=== PATIENT | male | born 1965 | race Caucasian/White ===

== ENCOUNTER 2023-09-28 06:31 | Outpatient (OUT) | payer OTHER, SELFPAY ==
[2023-09-28 06:52] LABS: Basophils Absolute Auto 0.1 10^3/uL (0.0-0.1); Eosinophils Absolute Auto 0.1 10^3/uL (0.0-0.7); Eosinophils Percent Auto 1.2 % (0.9-7.0); Hemoglobin 17.3 g/dL (14.0-18.0); Immature Granulocytes Abs Auto 0.01 10^3/uL (0.00-0.03); Immature Granulocytes Pct Auto 0.2 % (0.0-0.5); Lymphocytes Absolute Auto 1.9 10^3/uL (1.2-3.8); Lymphocytes Percent Auto 36.3 % (20.5-60.0); Mean Corpuscular HGB Conc 34.6 g/dL (29.9-35.2); Mean Corpuscular Hemoglobin 31.1 pg (25.9-34.0); Mean Corpuscular Volume 89.9 fL (80.0-94.0); Mean Platelet Volume 11.1 fL (9.5-13.5); Monocytes Absolute Auto 0.6 10^3/uL (0.3-0.8); Neutrophils Absolute Auto 2.5 10^3/uL (1.4-6.5); Neutrophils Percent Auto 49.3 % (43.0-75.0); Platelet Count 168 10^3/uL (150-450); Red Blood Count 5.56 10^6/uL (4.70-6.10); Red Cell Distribution Width 11.9 % (11.0-15.0); White Blood Count 5.2 10^3/uL (4.0-11.0)
[2023-09-28 07:09] LABS: Estimated Average Glucose 103 mg/dL; Glycohemoglobin A1C 5.2 % (4.5-6.2)
[2023-09-28 07:34] LABS: Alanine Aminotransferase 27 U/L (16-63); Albumin Globulin Ratio 1.1; Albumin Level 3.7 g/dL (3.4-5.0); Alkaline Phosphatase 69 U/L (46-116); Anion Gap 12.3; Aspartate Amino Transferase 13 U/L (15-37); BUN Creatinine Ratio 14.2; Calcium 8.5 mg/dL (8.5-10.1); Carbon Dioxide 27.8 mmol/L (21.0-32.0); Chloride 103 mmol/L (98-107); Cholesterol 194 mg/dL (<=200); Estimated GFR (African America >60 (>=60); Estimated GFR (Non-African Ame >60 (>=60); Free T3 3.06 pg/mL (2.18-3.98); Globulin 3.3 g/dL; Glucose 99 mg/dL (74-106); HDL Cholesterol 49 mg/dL (40-60); LDL Cholesterol Calculated 120.6 mg/dL; Potassium 4.1 mmol/L (3.5-5.1); Sodium 139 mmol/L (136-145); Thyroid Stimulating Hormone 3.578 uIU/mL (0.358-3.740); Triglycerides 122 mg/dL (<=150); VLDL CHOLESTEROL 24.4 mg/dL
[2023-09-29 08:09] LABS: Testosterone 606 ng/dL (264-916)
== END 2023-09-28 06:32 | disposition home or self-care (01) ==
LOC: LAB 06:35
PROVIDERS: PCP Family Medicine; Visit Provider Family Medicine
DX: Z00.00 Encounter for general adult medical examination without abnormal findings (principal); E78.5 Hyperlipidemia, unspecified; R73.09 Other abnormal glucose; Z12.5 Encounter for screening for malignant neoplasm of prostate
CPT/HCPCS: 36415; 80053; 80061; 83036; 83525; 84403; 84436; 84443; 84481; 85025; G0103

== ENCOUNTER 2023-10-05 07:57 | Outpatient (OUT) | payer OTHER, SELFPAY ==
--- NOTE | 2023-10-05 07:59 | US_ITS ---
The [address] [address] Patient Name: JOSE OSMAN MRN: [id number] date: 1965 Sex: M Assigned Patient Location: [place] Current Patient Location: [place] Accession/Order Number: [id number] Exam Date: 10/05/2023 08:00 Report Date: 10/05/2023 18:21 At the request of: KENISHA DUNN Procedure: US right upper quadrant Limited abdominal ultrasound 10/05/2023 8:00 AM EST. Indication: Right upper quadrant abdominal pain. Comparison: Abnormal LFTs . Findings: Liver is slightly coarsened in echotexture without evidence of focal lesion. Extrahepatic biliary ductal dilatation with the visualized portion of the common duct measuring up to 9.4 mm. No gallstones, gallbladder wall thickening, pericholecystic fluid or sonographic Maldonado's sign. Limited visualization of the tail of the pancreas, with the visualized portion of the pancreas unremarkable. Right kidney measures 10.9 x 5.5 x 6.1 cm. No hydronephrosis. No free fluid in the right upper quadrant. US/US right upper quadrant Impression: 1. Slightly coarsened echogenicity in the liver, compatible with underlying hepatocellular disease, which most commonly relates to mild fatty infiltration of the liver 2. Common bile duct dilatation without an obstructing cause identified sonographically. Otherwise unremarkable right upper quadrant ultrasound, as detailed above. Electronically authenticated by: KE JOYCE Date: 10/05/2023 18:21
--- OUTSIDE RECORDS SUMMARY | 2023-10-05 07:59 | XMS_ITS | CCD ---
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 Name Role Phone SHAUN ., DR DE Primary Care Unavailable TERESSAY ., DR DE Consulting Unavailable HOY ., DR DE Attending Unavailable HOY ., DR DE Admitting Unavailable ZIEBER, DR JEANINE Cuenca Consulting Unavailable HOY ., DR DE Primary Care Unavailable HOY ., DR DE Consulting Unavailable HOY ., DR DE Attending Unavailable HOY ., DR DE Admitting Unavailable NILLSony Attending Unavailable Jacky Dunn Referring Unavailable Problems Active Problems Problem Classification Problem Date Documented Date Episodic/Chronic Spondylosis; intervertebral disc disorders; other back problems (1 source) Other intervertebral disc degeneration, lumbosacral region; Translations: [OTH IV DISC DEGEN LUMBOSACRAL RGN] Onset: 11-30-2022 Chronic Spondylosis; intervertebral disc disorders; other back problems (4 sources) Radiculopathy, lumbar region; Translations: [RADICULOPATHY LUMBAR REGION] Onset: 11-28-2022 Episodic Past or Other Problems Problem Classification Problem Date Documented Da te Episodic/Chronic Other screening for suspected conditions (not mental disorders or infectious disease) (1 source) Encounter for screening for malignant neoplasm of prostate; Translations: [ENC SCREEN MALIG NEOPLASM PROSTATE] Onset: 07-03-2022 Episodic Results Test Name Value Interpretation Reference Range Facil ity Physician Referralon 024 Physician Referral [id number]# 1.00TIFF [facility] Physician Referralon 024 Physician Referral [id number] #1.00TIFF [facility] XR LSPINE MIN 4 VIEWSon 11-01 XR LSPINE MIN 4 VIEWS EXAMINATION: XR LSPINE MIN 4 VIEWS HISTORY: Lumbar radiculopathy ; acute right leg pain; no known injury COMPARISON: No relevant comparison available. FINDINGS: BONES: Moderate degenerative facet arthropathy L5-S1 resulting in bone encroachment on the neural foramen. DISC SPACES: Marked disc space narrowing L5-S1. PARASPINOUS: Negative. No paraspinous abnormality is seen. OTHER: Negative. IMPRESSION: 1. L5-S1 moderate-marked degenerative disc disease and moderate degenerative facet arthropathy likely contributing to patient's symptoms. Electronically authenticated by: JEANINE BARTH Date: 2022-11-28 10:09 Normal [facility] INSULINon 07-03-2022 Insulin 11.7 uIU/mL Normal 2.6-24.9 [facility] Comment on above: Performed By: #### I NSULIN #### [facility] [address] [place] [address] Dr. Navarro Biggs TESTOSTERONE, TOTALon 2021 Testosterone [Mass/Vol] 586 ng/dL Normal 264-916 [facility] Comment on above: Result Comment: Adul t male reference interval is based on a population of healthy nonobese males (BMI <30) between 19 and 39 years old. Monica et.al. JCEM 2017,102;4027-1911. PMID: [id number]. Performed By: #### T ESTTOT #### [facility] [address] [place] [address] Dr. Navarro Biggs CBC AUTO DIFFon 07-02-2022 BASO # 0.1 103/ul Normal 0.0-0.1 [facility] Comment on above: Performed By: #### P SASC #### [facility] [address] [place] [address] Dr. Navarro Biggs Basophils/100 WBC (Bld) 1.0 % Normal 0.2-2.0 [facility] Comment on above: Performed By: #### P SASC #### [facility] [address] [place] [address] Dr. Navarro Biggs EO # 0.1 103/ul Normal 0.0-0.7 [facility] Comment on above: Performed By: #### P SASC #### [facility] [address] [address] [address] Navarro Biggs Eosinophils/100 WBC (Bld) 1.3 % Normal 0.9-7.0 [facility] Comment on above: Performed By: #### P SASC #### [facility] [address] [place] [address] Dr. Navarro Biggs Erythrocyte distribution width (RBC) [Ratio] 11.7 % Normal 11.0-15.0 [facility] Comment on above: Performed By: #### P SASC #### [facility] [address] [place] [address] Dr. Navarro Biggs Hematocrit (Bld) [Volume fraction] 48.3 % Normal 42.0-54.0 [facility] Comment on above: Performed By: #### P SASC #### [facility] [address] [place] [address] Dr. Navarro Biggs Hemoglobin (Bld) [Mass/Vol] 16.7 g/dL Normal 14.0-18.0 [facility] Comment on above: Performed By: #### P SASC #### [facility] [address] [place] [address] Dr. Navarro Biggs IG # 0.01 10e3/ul Normal 0.00-0.03 [facility] Comment on above: Performed By: #### P SASC #### [facility] [address] [place] [address] Dr. Navarro Biggs IG % 0.2 % Normal 0.0-0.5 [facility] Comment on above: Performed By: #### P SASC #### [facility] [address] [place] [address] Dr. Navarro Biggs LYMPH # 1.9 103/ul Normal 1.2-3.8 [facility] Comment on above: Performed By: #### P SASC #### [facility] [address] [place] [address] Dr. Navarro Biggs Lymphocytes/100 WBC (Bld) 36.6 % Normal 20.5-60.0 [facility] Comment on above: Performed By: #### P SASC #### [facility] [address] [address] [address] Navarro Biggs MANUAL DIFF REQ NO Normal [facility] Comment on above: Performed By: #### P SASC #### [facility] [address] [address] [address] Navarro Biggs MCH (RBC) [Entitic mass] 31.4 pg Normal 25.9-34.0 [facility] Comment on above: Performed By: #### P SASC #### [facility] [address] [address] [address] Navarro Biggs MCHC (RBC) [Mass/Vol] 34.6 g/dL Normal 29.9-35.2 [facility] Comment on above: Performed By: #### P SASC #### [facility] [address] [place] [address] Dr. Navarro Biggs MCV (RBC) [Entitic vol] 90.8 fL Normal 80.0-94.0 [facility] Comment on above: Performed By: #### P SASC #### [facility] [address] [address] [address] Navarro Biggs MONO # 0.6 103/ul Normal 0.3-0.8 [facility] Comment on above: Performed By: #### P SASC #### [facility] [address] [address] [address] Navarro Biggs Monocytes/100 WBC (Bld) 11.3 % Normal 1.7-12.0 [facility] Comment on above: Performed By: #### P SASC #### [facility] [address] [address] [address] Navarro Biggs NEUT # 2.6 103/ul Normal 1.4-6.5 [facility] Comment on above: Performed By: #### P SASC #### [facility] [address] [place] [address] Dr. Navarro Biggs Neutrophils/100 WBC (Bld) 49.6 % Normal 43.0-75.0 [facility] Comment on above: Performed By: #### P SASC #### [facility] [address] [address] [address] Navarro Biggs Platelet mean volume (Bld) [Entitic vol] 11.5 fL Normal 9.5-13.5 [facility] Comment on above: Performed By: #### P SASC #### [facility] [address] [address] [address] Navarro Biggs PLT 150 103/ul Normal 150-450 [facility] Comment on above: Performed By: #### P SASC #### [facility] [address] [address] [address] Navarro Biggs RBC 5.32 106/ul Normal 4.70-6.10 [facility] Comment on above: Performed By: #### P SASC #### [facility] [address] [place] [address] Dr. Navarro Biggs WBC 5.2 103/ul Normal 4.0-11.0 [facility] Comment on above: Performed By: #### P SASC #### [facility] [address] [address] [address] Navarro Biggs CULTURE URINEon 07-02-2022 CULTURE URINE Culture Observations: NO GROWTH. Normal [facility] Comment on above: Performed By: #### U RCX #### [facility] [address] [place] [address] Dr. Navarro Biggs FREE THYROXINE INDEX T7on FTI 1.69 Normal 1.30-4.50 [facility] Comment on above: Performed By: #### P SASC #### [facility] [address] [place] [address] Dr. Navarro Biggs T3U 36.0 % Normal 33.0-40.0 [facility] Comment on above: Performed By: #### P SASC #### [facility] [address] [address] [address] Navarro Biggs T4 [Mass/Vol] 4.70 ug/dL Normal 4.50-12.10 [facility] Comment on above: Performed By: #### P SASC #### [facility] [address] [address] [address] Navarro Biggs GLYCOHEMOGLOBIN A1Con 2021 ADA RECOMMENDATION SEE BELOW Normal [facility] Comment on above: Result Comment: ADA RECOMMENDED LIMIT 4.0 - 6.0 ADA THERAPEUTIC TARGET < 7.0 ACTION SUGGESTED > 7.0 Performed By: #### A 1C #### [facility] [address] [address] [address] Navarro Biggs Glucose [Mass/Vol] 111 mg/dL Normal [facility] Comment on above: Performed By: #### A 1C #### [facility] [address] [place] [address] Dr. Navarro Biggs HbA1c (Bld) [Mass fraction] 5.5 % Normal 4.5-6.2 [facility] Comment on above: Performed By: #### A 1C #### [facility] [address] [place] [address] Dr. Navarro Biggs LIPID PROFILEon 07-02-2022 CHOL-HDL RATIO NORM SEE BELOW Normal [facility] Comment on above: Result Comment: 3.3 - 4.4 LOW RISK 4.4 - 7.1 AVERAGE RISK 7.1 - 11.0 MODERATE RISK >11.0 HIGH RISK Performed By: #### T SH, T7, URIC, CMP, LIPID #### [facility] [address] [place] [address] Dr. Navarro Biggs Cholesterol [Mass/Vol] 211 mg/dL Critically high <=200 [facility] Comment on above: Performed By: #### T SH, T7, URIC, CMP, LIPID #### [facility] [address] [address] [address] Navarro Biggs Cholesterol in HDL [Mass/Vol] 56 mg/dL Normal 40-60 [facility] Comment on above: Performed By: #### T SH, T7, URIC, CMP, LIPID #### [facility] [address] [address] [address] Navarro Biggs Cholesterol in LDL [Mass/Vol] 139.0 mg/dL Normal [facility] Comment on above: Performed By: #### T SH, T7, URIC, CMP, LIPID #### [facility] [address] [address] [address] Navarro Biggs Cholesterol.total/Cho lesterol in HDL [Mass ratio] 3.8 {ratio} Normal [facility] Comment on above: Performed By: #### T SH, T7, URIC, CMP, LIPID #### [facility] [address] [address] [address] Navarro Biggs HDL NORMAL > or = 60 mg/dl - LOW CARDIOVASCULAR RISK <40 mg/dl - HIGH CARDIOVASCULAR RISK Normal [facility] Comment on above: Performed By: #### T SH, T7, URIC, CMP, LIPID #### [facility] [address] [address] [address] Navarro Biggs LDL CALC NORMAL SEE BELOW Normal [facility] Comment on above: Result Comment: <100 mg/dl OPTIMAL 100 - 129 mg/dl NEAR OR ABOVE OPTIMAL 130 - 159 mg/dl BORDERLINE HIGH 160 - 189 mg/dl HIGH >190 mg/dl VERY HIGH Performed By: #### T SH, T7, URIC, CMP, LIPID #### [facility] [address] [address] [address] Navarro Biggs Triglyceride [Mass/Vol] 80 mg/dL Normal <=150 [facility] Comment on above: Performed By: #### T SH, T7, URIC, CMP, LIPID #### [facility] [address] [address] [address] Navarro Biggs VLDL CALC 16.0 mg/dL Normal [facility] Comment on above: Performed By: #### T SH, T7, URIC, CMP, LIPID #### [facility] [address] [address] [address] Navarro Biggs PROF 14(COMP METB)on 022 Albumin [Mass/Vol] 3.9 g/dL Normal 3.4-5.0 [facility] Comment on above: Performed By: #### T SH, T7, URIC, CMP, LIPID #### [facility] [address] [address] [address] Navarro Biggs Albumin/Globulin [Mass ratio] 1.3 {ratio} Normal [facility] Comment on above: Performed By: #### T SH, T7, URIC, CMP, LIPID #### [facility] [address] [place] [address] Dr. Navarro Biggs ALP [Catalytic activity/Vol] 65 U/L Normal 46-116 [facility] Comment on above: Performed By: #### T SH, T7, URIC, CMP, LIPID #### [facility] [address] [place] [address] Dr. Navarro Biggs ALT [Catalytic activity/Vol] 31 U/L Normal 16-63 [facility] Comment on above: Performed By: #### T SH, T7, URIC, CMP, LIPID #### [facility] [address] [place] [address] Dr. Navraro Biggs Anion gap [Moles/Vol] 7.8 mmol/L Normal [facility] Comment on above: Performed By: #### T SH, T7, URIC, CMP, LIPID #### [facility] [address] [place] [address] Dr. Navarro Biggs AST [Catalytic activity/Vol] 11 U/L Critically low 15-37 [facility] Comment on above: Performed By: #### T SH, T7, URIC, CMP, LIPID #### [facility] [address] [place] [address] Dr. Navarro Biggs Bilirubin [Mass/Vol] 1.3 mg/dL Critically high 0.2-1.0 [facility] Comment on above: Performed By: #### T SH, T7, URIC, CMP, LIPID #### [facility] [address] [place] [address] Dr. Navarro Biggs Calcium [Mass/Vol] 8.9 mg/dL Normal 8.5-10.1 [facility] Comment on above: Performed By: #### T SH, T7, URIC, CMP, LIPID #### [facility] [address] [place] [address] Dr. Navarro Biggs Chloride [Moles/Vol] 102 mmol/L Normal 98-107 [facility] Comment on above: Performed By: #### T SH, T7, URIC, CMP, LIPID #### [facility] [address] [place] [address] Dr. Navarro Biggs CO2 [Moles/Vol] 30.7 mmol/L Normal 21.0-32.0 [facility] Comment on above: Performed By: #### T SH, T7, URIC, CMP, LIPID #### [facility] [address] [place] [address] Dr. Navarro Biggs Creatinine [Mass/Vol] 0.99 mg/dL Normal 0.70-1.30 [facility] Comment on above: Performed By: #### T SH, T7, URIC, CMP, LIPID #### [facility] [address] [place] [address] Dr. Navarro Biggs EGFR-AF PALAUAN >60 Normal >=60 [facility] Comment on above: Performed By: #### T SH, T7, URIC, CMP, LIPID #### [facility] [address] [place] [address] Dr. Navarro Biggs EGFR-NON AF PALAUAN >60 Normal >=60 [facility] Comment on above: Performed By: #### T SH, T7, URIC, CMP, LIPID #### [facility] [address] [place] [address] Dr. Navarro Biggs Globulin (S) [Mass/Vol] 3.1 g/dL Normal [facility] Comment on above: Performed By: #### T SH, T7, URIC, CMP, LIPID #### [facility] [address] [place] [address] Dr. Navarro Biggs Glucose [Mass/Vol] 98 mg/dL Normal 74-106 [facility] Comment on above: Performed By: #### T SH, T7, URIC, CMP, LIPID #### [facility] [address] [place] [address] Dr. Navarro Biggs Potassium [Moles/Vol] 4.5 mmol/L Normal 3.5-5.1 [facility] Comment on above: Performed By: #### T SH, T7, URIC, CMP, LIPID #### [facility] [address] [place] [address] Dr. Navarro Biggs Protein [Mass/Vol] 7.0 g/dL Normal 6.4-8.2 [facility] Comment on above: Performed By: #### T SH, T7, URIC, CMP, LIPID #### [facility] [address] [place] [address] Dr. Navarro Biggs Sodium [Moles/Vol] 136 mmol/L Normal 136-145 [facility] Comment on above: Performed By: #### T SH, T7, URIC, CMP, LIPID #### [facility] [address] [place] [address] Dr. Navarro Biggs Urea nitrogen [Mass/Vol] 17.0 mg/dL Normal 7.0-18.0 [facility] Comment on above: Performed By: #### T SH, T7, URIC, CMP, LIPID #### [facility] [address] [place] [address] Dr. Navarro Biggs Urea nitrogen/Creatinine [Mass ratio] 17.2 mg/mg Normal [facility] Comment on above: Performed By: #### T SH, T7, URIC, CMP, LIPID #### [facility] [address] [place] [address] Dr. Navarro Biggs TSHon 07-02-2022 TSH 3.276 uIU/mL Normal 0.358-3.740 [facility] Comment on above: Performed By: #### P SASC #### [facility] [address] [place] [address] Dr. Navarro Biggs UA RANDOM W/MICROSCOPICon BACTERIA NONE SEEN Normal NONE SEEN [facility] Comment on above: Performed By: #### U AMIC #### [facility] [address] [place] [address] Dr. Navarro Biggs Bilirubin Ql (U) Negative Normal NEGATIVE [facility] Comment on above: Performed By: #### U AMIC #### [facility] [address] [place] [address] Dr. Navarro Biggs CAST NONE SEEN Normal NONE SEEN [facility] Comment on above: Performed By: #### U AMIC #### [facility] [address] [address] [address] Navarro Biggs Clarity (U) CLEAR Normal CLEAR [facility] Comment on above: Performed By: #### U AMIC #### [facility] [address] [address] [address] Navarro Biggs Color (U) LT. YELLOW Normal YELLOW [facility] Comment on above: Performed By: #### U AMIC #### [facility] [address] [address] [address] Navarro Biggs Crystals LM Nom (Urine sed) NONE SEEN Normal NONE SEEN [facility] Comment on above: Performed By: #### U AMIC #### [facility] [address] [place] [address] Dr. Navarro Biggs Epithelial cells LM Ql (Urine sed) NONE SEEN Normal NONE SEEN /RARE [facility] Comment on above: Performed By: #### U AMIC #### [facility] [address] [place] [address] Dr. Navarro Biggs Glucose Ql (U) Negative Normal NEGATIVE [facility] Comment on above: Performed By: #### U AMIC #### [facility] [address] [place] [address] Dr. Navarro Biggs Hemoglobin Ql (U) Negative Normal NEGATIVE [facility] Comment on above: Performed By: #### U AMIC #### [facility] [address] [place] [address] Dr. Navarro Biggs Ketones Ql (U) Negative Normal NEGATIVE [facility] Comment on above: Performed By: #### U AMIC #### [facility] [address] [place] [address] Dr. Navarro Biggs LEUKOCYTES Negative Normal NEGATIVE [facility] Comment on above: Performed By: #### U AMIC #### [facility] [address] [place] [address] Dr. Navarro Biggs MUCOUS NONE SEEN Normal NONE SEEN [facility] Comment on above: Performed By: #### U AMIC #### [facility] [address] [place] [address] Dr. Navarro Biggs Nitrite Ql (U) Negative Normal NEGATIVE [facility] Comment on above: Performed By: #### U AMIC #### [facility] [address] [address] [address] Navarro Biggs pH (U) 7.5 [pH] Normal 5-9 [facility] Comment on above: Performed By: #### U AMIC #### [facility] [address] [address] [address] Navarro Biggs RBC 0-2 Normal 0-2 [facility] Comment on above: Performed By: #### U AMIC #### [facility] [address] [address] [address] Navarro Biggs SPEC GRAVITY 1.020 Normal 1.005-<=1.025 [facility] Comment on above: Performed By: #### U AMIC #### [facility] [address] [address] [address] Navarro Biggs UA PROTEIN Negative Normal NEGATIVE/ TRACE [facility] Comment on above: Performed By: #### U AMIC #### [facility] [address] [address] [address] Navarro Biggs Urobilinogen Qn (U) 0.2 {Jayden'U}/dL Normal 0.2 - 1. 0 [facility] Comment on above: Performed By: #### U AMIC #### [facility] [address] [address] [address] Navarro Biggs WBC 0-2 Abnormal NONE SEEN [facility] Comment on above: Performed By: #### U AMIC #### [facility] [address] [address] [address] Navarro Biggs URIC ACID SERUMon 07-02-2022 Urate [Mass/Vol] 4.8 mg/dL Normal 3.5-7.2 [facility] Comment on above: Performed By: #### T SH, T7, URIC, CMP, LIPID #### [facility] [address] [address] [address] Naavrro Biggs Encounters Encounter Date Encounter Type Care Provider Facility Start: 11-05-2023 ambulatory Sony TANNER Facility :[facility] Start: 09-27-2023 ambulatory Sony TANNER Facility:[facility] [place] Start: 11-28-2022 End: 11-29-[address] JACKY DUNN . Facility:[facility] Start: 07-03-2022 Encounter for genera l adult medical examination without abnormal findings DR JACKY DUNN . [facility] Start: 07-02-2022 End: 07-03-[address] JACKY DUNN . Facility:[facility] Start: 07-02-2022 End: 07-03-2022 Encounter for general adult medical examination without abnormal findings DR JACKY DUNN . Facility:[facility] Procedures Date Procedure Procedure Detail Performing Clinician Start: 07-02-[address] SAPNA DUNN . Comment on above: Performed By: #### P [facility] #### [facility] [address] [place] [address] Dr. Navarro Biggs Payers Date Payer Category Payer Unknown [id number] 2.16.84 [id number] 1965 Unknown [id number] 2.16.84 [id number] 1965 Unknown [id number] [id number] 1959 Unknown [id number] 1959 Unknown [id number] Summary Purpose Family History No Family History Records FoundNo Family History Records Found Advance Directives No Advanced Directives Records FoundNo Advanced Directives Records Found Additional Source Comments (unrecognized sect ion and content) No Status Records FoundNo Status Records Found INFORMATION SOURCE (unrecogn ized section and content) DATE CREATED AUTHOR 12/02/2022 [facility] [place] DATE CREATED AUTHOR AUTHOR'S ORGANIZ ATION 10/02/2023 [facility] FOR RECORDS PERTAINING TO PATIENTS WHO ARE OR HAVE BEEN ENROLLED IN A CHEMICAL DEPENDENCY/SUBSTANCEABUSE PROGRAM, SOME INFORMATION MAY BE OMITTED. This clinical summary was aggregated from multiple sources. Caution should be exercised in using it in the provision of clinical care. This summary normalizes information from multiple sources, and as a consequence, information in this document may materially change the coding, format and clinical context of patient data. In addition, data may be omitted in some cases. CLINICAL DECISIONS SHOULD BE BASED ON THE PRIMARY CLINICAL RECORDS. [facility]. provides no warranty or guarantee of the accuracy or completeness of information in this document.
== END 2023-10-05 07:58 | disposition home or self-care (01) ==
LOC: US 07:57
PROVIDERS: PCP Family Medicine; Visit Provider Family Medicine
DX: R94.5 Abnormal results of liver function studies (principal)
CPT/HCPCS: 76705

== ENCOUNTER 2023-10-23 06:43 | Outpatient (OUT) | payer OTHER, SELFPAY ==
--- NOTE | 2023-10-23 06:20 | NM_ITS ---
Patient Name: JOSE OSMAN MR#: [id number] : 1965 Exam Date: 10/23/2023 Ordering Doctor: DR Jacky Perez . RADIOLOGY REPORT PROCEDURE: NM YAMEL PERF SPECT REST STR COMPARISON: None. INDICATIONS: CHEST PAIN, SHORTNESS OF BREATH TECHNIQUE: Exam Description: Stress/Rest one day protocol gated SPECT Rest Imagin.9 mCi Tc-99m Cardiolite IV on 10/23/2023 Stress Imaging 30.8 mCi Tc-99m Cardiolite IV on 10/23/2023 Exercise Protocol: Catarino Heart Rate (bpm): Rest: 74 Max: 151 PMHR: 92 Blood Pressure: Rest: 126/82 Max: 166/84 Exercise Time: Minutes: 9 Seconds: 58 Stage Reached: Stage: 4 Mets 13.2 Symptoms: Rest and peak stress ECG findings were abnormal and the exercise portion of the study was Non-diagnostic per attending physician Dr. Woods due to EKG changes during recovery. For more details please see separate cardiac stress test report. FINDINGS: QUALITY OF STUDY: Excellent. PERFUSION DEFECT: None. LOCATION: N/A SIZE: N/A. SEVERITY: N/A. TYPE: N/A. WALL MOTION: Normal. LV SIZE: Normal. 80 mL. TID / TCD: None; 0.8 LVEF: Normal. Calculated EF 69%. SUMMARY: Myocardial perfusion imaging study is NORMAL. CONCLUSION: 1. Normal nuclear medicine myocardial perfusion scan. Dictated by: Brody Bearden M.D. on 10/24/2023 at 15:37 Approved by: Brody Bearden M.D. on 10/24/2023 at 15:39
--- OUTSIDE RECORDS SUMMARY | 2023-10-23 06:46 | XMS_ITS | CCD ---
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 Reeler Name Role Phone SHAUN ., DR DE [...] Facil ity Physician Referralon 024 Physician Referral [id number]# 1.00TIFF [facility] Physician Referralon 024 Physician Referral [id number] #1.00TIFF [facility] XR LSPINE MIN 4 VIEWSon 11-01 [...] JEANINE BARTH Date: 2022-11-28 10:09 Normal [facility] INSULINon 07-03-2022 Insulin 11.7 uIU/mL Normal 2.6-24.9 [facility] Comment on above: Performed By: #### I NSULIN #### [facility] [address] [place] [address] Dr. Navarro Biggs TESTOSTERONE, TOTALon 2021 Testosterone [Mass/Vol] 586 ng/dL Normal 264-916 [facility] Comment on above: Result Comment: Adul t male reference interval is based on a population of healthy nonobese males (BMI <30) between 19 and 39 years old. Monica et.al. JCEM 2017,102;8639-0536. PMID: [id number]. Performed By: #### T ESTTOT #### [facility] [address] [place] [address] Dr. Navarro Biggs CBC AUTO DIFFon 07-02-2022 BASO # 0.1 103/ul Normal 0.0-0.1 [facility] Comment on above: Performed By: #### P SASC #### [facility] [address] [place] [address] Dr. Navarro Biggs Basophils/100 WBC (Bld) 1.0 % Normal 0.2-2.0 [facility] Comment on above: Performed By: #### P SASC #### [facility] [address] [place] [address] Dr. Navarro Biggs EO # 0.1 103/ul Normal 0.0-0.7 [facility] Comment on above: Performed By: #### P SASC #### [facility] [address] [address] [address] Navarro Biggs Eosinophils/100 WBC (Bld) 1.3 % Normal 0.9-7.0 [facility] Comment on above: Performed By: #### P SASC #### [facility] [address] [place] [address] Dr. Navarro Biggs Erythrocyte distribution width (RBC) [Ratio] 11.7 % Normal 11.0-15.0 [facility] Comment on above: Performed By: #### P SASC #### [facility] [address] [place] [address] Dr. Navarro Biggs Hematocrit (Bld) [Volume fraction] 48.3 % Normal 42.0-54.0 [facility] Comment on above: Performed By: #### P SASC #### [facility] [address] [place] [address] Dr. Navarro Biggs Hemoglobin (Bld) [Mass/Vol] 16.7 g/dL Normal 14.0-18.0 [facility] Comment on above: Performed By: #### P SASC #### [facility] [address] [place] [address] Dr. Navarro Biggs IG # 0.01 10e3/ul Normal 0.00-0.03 [facility] Comment on above: Performed By: #### P SASC #### [facility] [address] [place] [address] Dr. Navarro Biggs IG % 0.2 % Normal 0.0-0.5 [facility] Comment on above: Performed By: #### P SASC #### [facility] [address] [place] [address] Dr. Navarro Biggs LYMPH # 1.9 103/ul Normal 1.2-3.8 [facility] Comment on above: Performed By: #### P SASC #### [facility] [address] [place] [address] Dr. Navarro Biggs Lymphocytes/100 WBC (Bld) 36.6 % Normal 20.5-60.0 [facility] Comment on above: Performed By: #### P SASC #### [facility] [address] [address] [address] Navarro Biggs MANUAL DIFF REQ NO Normal [facility] Comment on above: Performed By: #### P SASC #### [facility] [address] [address] [address] Navarro Biggs MCH (RBC) [Entitic mass] 31.4 pg Normal 25.9-34.0 [facility] Comment on above: Performed By: #### P SASC #### [facility] [address] [address] [address] Navarro Biggs MCHC (RBC) [Mass/Vol] 34.6 g/dL Normal 29.9-35.2 [facility] Comment on above: Performed By: #### P SASC #### [facility] [address] [place] [address] Dr. Navarro Biggs MCV (RBC) [Entitic vol] 90.8 fL Normal 80.0-94.0 [facility] Comment on above: Performed By: #### P SASC #### [facility] [address] [address] [address] Navarro Biggs MONO # 0.6 103/ul Normal 0.3-0.8 [facility] Comment on above: Performed By: #### P SASC #### [facility] [address] [address] [address] Navarro Biggs Monocytes/100 WBC (Bld) 11.3 % Normal 1.7-12.0 [facility] Comment on above: Performed By: #### P SASC #### [facility] [address] [address] [address] Navarro Biggs NEUT # 2.6 103/ul Normal 1.4-6.5 [facility] Comment on above: Performed By: #### P SASC #### [facility] [address] [place] [address] Dr. Navarro Biggs Neutrophils/100 WBC (Bld) 49.6 % Normal 43.0-75.0 [facility] Comment on above: Performed By: #### P SASC #### [facility] [address] [address] [address] Navarro Biggs Platelet mean volume (Bld) [Entitic vol] 11.5 fL Normal 9.5-13.5 [facility] Comment on above: Performed By: #### P SASC #### [facility] [address] [address] [address] Navarro Biggs PLT 150 103/ul Normal 150-450 [facility] Comment on above: Performed By: #### P SASC #### [facility] [address] [address] [address] Navarro Biggs RBC 5.32 106/ul Normal 4.70-6.10 [facility] Comment on above: Performed By: #### P SASC #### [facility] [address] [place] [address] Dr. Navarro Biggs WBC 5.2 103/ul Normal 4.0-11.0 [facility] Comment on above: Performed By: #### P SASC #### [facility] [address] [address] [address] Navarro Biggs CULTURE URINEon 07-02-2022 CULTURE URINE Culture Observations: NO GROWTH. Normal [facility] Comment on above: Performed By: #### U RCX #### [facility] [address] [place] [address] Dr. Navarro Biggs FREE THYROXINE INDEX T7on FTI 1.69 Normal 1.30-4.50 [facility] Comment on above: Performed By: #### P SASC #### [facility] [address] [place] [address] Dr. Navarro Biggs T3U 36.0 % Normal 33.0-40.0 [facility] Comment on above: Performed By: #### P SASC #### [facility] [address] [address] [address] Navarro Biggs T4 [Mass/Vol] 4.70 ug/dL Normal 4.50-12.10 [facility] Comment on above: Performed By: #### P SASC #### [facility] [address] [address] [address] Navarro Biggs GLYCOHEMOGLOBIN A1Con 2021 ADA RECOMMENDATION SEE BELOW Normal [facility] Comment on above: Result Comment: ADA RECOMMENDED LIMIT 4.0 - 6.0 ADA THERAPEUTIC TARGET < 7.0 ACTION SUGGESTED > 7.0 Performed By: #### A 1C #### [facility] [address] [address] [address] aNvarro Biggs Glucose [Mass/Vol] 111 mg/dL Normal [facility] Comment on above: Performed By: #### A 1C #### [facility] [address] [place] [address] Dr. Navarro Biggs HbA1c (Bld) [Mass fraction] 5.5 % Normal 4.5-6.2 [facility] Comment on above: Performed By: #### A 1C #### [facility] [address] [place] [address] Dr. Navarro Biggs LIPID PROFILEon 07-02-2022 CHOL-HDL RATIO NORM SEE BELOW Normal [facility] Comment on above: Result Comment: 3.3 - 4.4 LOW RISK 4.4 - 7.1 AVERAGE RISK 7.1 - 11.0 MODERATE RISK >11.0 HIGH RISK Performed By: #### T SH, T7, URIC, CMP, LIPID #### [facility] [address] [place] [address] Dr. Navarro Biggs Cholesterol [Mass/Vol] 211 mg/dL Critically high <=200 [facility] Comment on above: Performed By: #### T SH, T7, URIC, CMP, LIPID #### [facility] [address] [address] [address] Navarro Biggs Cholesterol in HDL [Mass/Vol] 56 mg/dL Normal 40-60 [facility] Comment on above: Performed By: #### T SH, T7, URIC, CMP, LIPID #### [facility] [address] [address] [address] Navarro Biggs Cholesterol in LDL [Mass/Vol] 139.0 mg/dL Normal [facility] Comment on above: Performed By: #### T SH, T7, URIC, CMP, LIPID #### [facility] [address] [address] [address] Navarro Biggs Cholesterol.total/Cho lesterol in HDL [Mass ratio] 3.8 {ratio} Normal [facility] Comment on above: Performed By: #### T SH, T7, URIC, CMP, LIPID #### [facility] [address] [address] [address] Navarro Biggs HDL NORMAL > or = 60 mg/dl - LOW CARDIOVASCULAR RISK <40 mg/dl - HIGH CARDIOVASCULAR RISK Normal [facility] Comment on above: Performed By: #### T SH, T7, URIC, CMP, LIPID #### [facility] [address] [address] [address] Navarro Biggs LDL CALC NORMAL SEE BELOW Normal [facility] Comment on above: Result Comment: <100 mg/dl OPTIMAL 100 - 129 mg/dl NEAR OR ABOVE OPTIMAL 130 - 159 mg/dl BORDERLINE HIGH 160 - 189 mg/dl HIGH >190 mg/dl VERY HIGH Performed By: #### T SH, T7, URIC, CMP, LIPID #### [facility] [address] [address] [address] Navarro Biggs Triglyceride [Mass/Vol] 80 mg/dL Normal <=150 [facility] Comment on above: Performed By: #### T SH, T7, URIC, CMP, LIPID #### [facility] [address] [address] [address] Navarro Biggs VLDL CALC 16.0 mg/dL Normal [facility] Comment on above: Performed By: #### T SH, T7, URIC, CMP, LIPID #### [facility] [address] [address] [address] Navarro Biggs PROF 14(COMP METB)on 022 Albumin [Mass/Vol] 3.9 g/dL Normal 3.4-5.0 [facility] Comment on above: Performed By: #### T SH, T7, URIC, CMP, LIPID #### [facility] [address] [address] [address] Navarro Biggs Albumin/Globulin [Mass ratio] 1.3 {ratio} Normal [facility] Comment on above: Performed By: #### T SH, T7, URIC, CMP, LIPID #### [facility] [address] [place] [address] Dr. Navarro Biggs ALP [Catalytic activity/Vol] 65 U/L Normal 46-116 [facility] Comment on above: Performed By: #### T SH, T7, URIC, CMP, LIPID #### [facility] [address] [place] [address] Dr. Navarro Biggs ALT [Catalytic activity/Vol] 31 U/L Normal 16-63 [facility] Comment on above: Performed By: #### T SH, T7, URIC, CMP, LIPID #### [facility] [address] [place] [address] Dr. Navarro Biggs Anion gap [Moles/Vol] 7.8 mmol/L Normal [facility] Comment on above: Performed By: #### T SH, T7, URIC, CMP, LIPID #### [facility] [address] [place] [address] Dr. Navarro Biggs AST [Catalytic activity/Vol] 11 U/L Critically low 15-37 [facility] Comment on above: Performed By: #### T SH, T7, URIC, CMP, LIPID #### [facility] [address] [place] [address] Dr. Navarro Biggs Bilirubin [Mass/Vol] 1.3 mg/dL Critically high 0.2-1.0 [facility] Comment on above: Performed By: #### T SH, T7, URIC, CMP, LIPID #### [facility] [address] [place] [address] Dr. Navarro Biggs Calcium [Mass/Vol] 8.9 mg/dL Normal 8.5-10.1 [facility] Comment on above: Performed By: #### T SH, T7, URIC, CMP, LIPID #### [facility] [address] [place] [address] Dr. Navarro Biggs Chloride [Moles/Vol] 102 mmol/L Normal 98-107 [facility] Comment on above: Performed By: #### T SH, T7, URIC, CMP, LIPID #### [facility] [address] [place] [address] Dr. Navarro Biggs CO2 [Moles/Vol] 30.7 mmol/L Normal 21.0-32.0 [facility] Comment on above: Performed By: #### T SH, T7, URIC, CMP, LIPID #### [facility] [address] [place] [address] Dr. Navarro Biggs Creatinine [Mass/Vol] 0.99 mg/dL Normal 0.70-1.30 [facility] Comment on above: Performed By: #### T SH, T7, URIC, CMP, LIPID #### [facility] [address] [place] [address] Dr. Navarro Biggs EGFR-AF IRAQI >60 Normal >=60 [facility] Comment on above: Performed By: #### T SH, T7, URIC, CMP, LIPID #### [facility] [address] [place] [address] Dr. Navarro Biggs EGFR-NON AF IRAQI >60 Normal >=60 [facility] Comment on above: Performed By: #### T SH, T7, URIC, CMP, LIPID #### [facility] [address] [place] [address] Dr. Navarro Biggs Globulin (S) [Mass/Vol] 3.1 g/dL Normal [facility] Comment on above: Performed By: #### T SH, T7, URIC, CMP, LIPID #### [facility] [address] [place] [address] Dr. Navarro Biggs Glucose [Mass/Vol] 98 mg/dL Normal 74-106 [facility] Comment on above: Performed By: #### T SH, T7, URIC, CMP, LIPID #### [facility] [address] [place] [address] Dr. Navarro Biggs Potassium [Moles/Vol] 4.5 mmol/L Normal 3.5-5.1 [facility] Comment on above: Performed By: #### T SH, T7, URIC, CMP, LIPID #### [facility] [address] [place] [address] Dr. Navarro Biggs Protein [Mass/Vol] 7.0 g/dL Normal 6.4-8.2 The [facility] Comment on above: Performed By: #### T SH, T7, URIC, CMP, LIPID #### [facility] [address] [place] [address] Dr. Navarro Biggs Sodium [Moles/Vol] 136 mmol/L Normal 136-145 The [facility] Comment on above: Performed By: #### T SH, T7, URIC, CMP, LIPID #### [facility] [address] [place] [address] Dr. Navarro Biggs Urea nitrogen [Mass/Vol] 17.0 mg/dL Normal 7.0-18.0 [facility] Comment on above: Performed By: #### T SH, T7, URIC, CMP, LIPID #### [facility] [address] [place] [address] Dr. Navarro Biggs Urea nitrogen/Creatinine [Mass ratio] 17.2 mg/mg Normal [facility] Comment on above: Performed By: #### T SH, T7, URIC, CMP, LIPID #### [facility] [address] [place] [address] Dr. Navarro Biggs TSHon 07-02-2022 TSH 3.276 uIU/mL Normal 0.358-3.740 [facility] Comment on above: Performed By: #### P SASC #### [facility] [address] [place] [address] Dr. Navarro Biggs UA RANDOM W/MICROSCOPICon BACTERIA NONE SEEN Normal NONE SEEN [facility] Comment on above: Performed By: #### U AMIC #### [facility] [address] [place] [address] Dr. Navarro Biggs Bilirubin Ql (U) Negative Normal NEGATIVE [facility] Comment on above: Performed By: #### U AMIC #### [facility] [address] [place] [address] Dr. Navarro Biggs CAST NONE SEEN Normal NONE SEEN [facility] Comment on above: Performed By: #### U AMIC #### [facility] [address] [address] [address] Navarro Biggs Clarity (U) CLEAR Normal CLEAR [facility] Comment on above: Performed By: #### U AMIC #### [facility] [address] [address] [address] Navarro Biggs Color (U) LT. YELLOW Normal YELLOW [facility] Comment on above: Performed By: #### U AMIC #### [facility] [address] [address] [address] Navarro Biggs Crystals LM Nom (Urine sed) NONE SEEN Normal NONE SEEN [facility] Comment on above: Performed By: #### U AMIC #### [facility] [address] [place] [address] Dr. Navarro Biggs Epithelial cells LM Ql (Urine sed) NONE SEEN Normal NONE SEEN /RARE [facility] Comment on above: Performed By: #### U AMIC #### [facility] [address] [place] [address] Dr. Navarro Biggs Glucose Ql (U) Negative Normal NEGATIVE [facility] Comment on above: Performed By: #### U AMIC #### [facility] [address] [place] [address] Dr. Navarro Biggs Hemoglobin Ql (U) Negative Normal NEGATIVE [facility] Comment on above: Performed By: #### U AMIC #### [facility] [address] [place] [address] Dr. Navarro Biggs Ketones Ql (U) Negative Normal NEGATIVE [facility] Comment on above: Performed By: #### U AMIC #### [facility] [address] [place] [address] Dr. Navarro Biggs LEUKOCYTES Negative Normal NEGATIVE [facility] Comment on above: Performed By: #### U AMIC #### [facility] [address] [place] [address] Dr. Navarro Biggs MUCOUS NONE SEEN Normal NONE SEEN [facility] Comment on above: Performed By: #### U AMIC #### [facility] [address] [place] [address] Dr. Navarro Biggs Nitrite Ql (U) Negative Normal NEGATIVE [facility] Comment on above: Performed By: #### U AMIC #### [facility] [address] [address] [address] Navarro Biggs pH (U) 7.5 [pH] Normal 5-9 [facility] Comment on above: Performed By: #### U AMIC #### [facility] [address] [address] [address] Navarro Biggs RBC 0-2 Normal 0-2 [facility] Comment on above: Performed By: #### U AMIC #### [facility] [address] [address] [address] Navarro Biggs SPEC GRAVITY 1.020 Normal 1.005-<=1.025 [facility] Comment on above: Performed By: #### U AMIC #### [facility] [address] [address] [address] Navarro Biggs UA PROTEIN Negative Normal NEGATIVE/ TRACE [facility] Comment on above: Performed By: #### U AMIC #### [facility] [address] [address] [address] Navarro Biggs Urobilinogen Qn (U) 0.2 {Jayden'U}/dL Normal 0.2 - 1. 0 [facility] Comment on above: Performed By: #### U AMIC #### [facility] [address] [address] [address] Navarro Biggs WBC 0-2 Abnormal NONE SEEN [facility] Comment on above: Performed By: #### U AMIC #### [facility] [address] [address] [address] Navarro Biggs URIC ACID SERUMon 07-02-2022 Urate [Mass/Vol] 4.8 mg/dL Normal 3.5-7.2 [facility] Comment on above: Performed By: #### T SH, T7, URIC, CMP, LIPID #### [facility] [address] [address] [address] Navarro Biggs Encounters Encounter Date Encounter Type Care Provider Facility Start: 11-05-2023 ambulatory Sony TANNER Facility :[facility] Start: 09-27-2023 ambulatory Sony TANNER Facility:[facility] Start: 11-28-2022 End: 11-29-[address] JACKY DUNN . Facility:[facility] Start: 07-03-2022 Encounter for genera l adult medical examination without abnormal findings DR JACKY DUNN . [facility] Start: 07-02-2022 End: 07-03-[address] JACKY DUNN . Facility:[facility] Start: 07-02-2022 End: 07-03-2022 Encounter for general adult medical examination without abnormal findings DR JACKY DUNN . Facility:[facility] Procedures Date Procedure Procedure Detail Performing Clinician Start: 07-02-[address] SAPNA DUNN . Comment on above: Performed By: #### P [facility] #### [facility] [address] [place] [address] Dr. Navarro Biggs Payers Date Payer Category Payer Unknown [id number] 2.16.84 [id number] 1965 Unknown [id number] [id number] [id number] 1965 Unknown [id number] 1959 Unknown [id number] 1959 Unknown [id number] Summary Purpose Family History No Family History Records FoundNo Family History Records Found Advance Directives No Advanced Directives Records FoundNo Advanced Directives Records Found Additional Source Comments (unrecognized sect ion and content) No Status Records FoundNo Status Records Found INFORMATION SOURCE (unrecogn ized section and content) DATE CREATED AUTHOR 12/02/2022 [facility] DATE CREATED AUTHOR AUTHOR'S ORGANIZ ATION 10/02/2023 [facility] FOR RECORDS PERTAINING TO PATIENTS WHO [...] BE BASED ON THE PRIMARY CLINICAL RECORDS. [facility] [employer] [facility]. provides no warranty or guarantee of the accuracy or completeness of information in this document.
--- NOTE | 2023-10-23 09:58 | PM.STRESS ---
Stress Test Stress Test Procedure: Exercise Cardiolite stress test General Information: Reason for Stress Test: Chest pain, dyspnea Cardiac History and Risk Factors: Denies personal history. Mother s/p CABG.s Resting 12 - Lead Electrocardiogram: Rate & rhythm: Normal sinus at a rate of 74. [place]: Normal T-waves: Flattened in III ST-segments: Normal orientation Stress Test: Protocol: Catarino protocol was followed, with injection of Cardiolite once target heart rate was achieved. Exercise capacity: Exxcellent exercise capacity. Total exercise time of 9 minutes 59 seconds reached Catarino stage 4 at 4.2MPH, 16% grade, & 13.2 METs. Blood pressure: Initial: 126/82, Maximum: 166/84 Rate & rhythm: Patient remained in sinus rhythm during the exercise and recovery portions of the study.? The maximum heart rate was 151, which was 92% of the maximum predicted heart rate 163. ST-segments & T-waves: At approximately 4 minutes into the recovery phase, there was mild downsloping of the ST-segments in lead III. There were no reciprocal changes noted in II or aVF. T waves assumed the baseline orientation by 5 minutes into the recovery period. Patient response/symptoms: There were no symptoms similar to the chief complaint. Interpretation: This is a non-diagnostic exercise stress test based on ST-segment downsloping isolated to lead III. No reproducible segments. Cardiolite imaging interpretation will be reported separately. Clinical correlation required.?
== END 2023-10-23 06:44 | disposition home or self-care (01) ==
LOC: NM 06:43
PROVIDERS: PCP Family Medicine; Visit Provider Family Medicine
DX: Z00.00 Encounter for general adult medical examination without abnormal findings (principal); R06.02 Shortness of breath; R07.9 Chest pain, unspecified
CPT/HCPCS: 78452; 93017; A9500

== ENCOUNTER 2023-10-29 15:20 | Outpatient (OUT) | payer OTHER, SELFPAY ==
--- NOTE | 2023-10-29 15:21 | MR_ITS ---
[address] [address] Patient Name: JOSE OSMAN MRN: [id number] date: 1965 Sex: M Assigned Patient Location: MRI Current Patient Location: Accession/Order Number: [id number] Exam Date: 10/29/2023 15:25 Report Date: 10/30/2023 09:30 At the request of: KENISHA DUNN Procedure: MR abdomen wo con EXAMINATION: MR abdomen wo con HISTORY: other specified diseases of biliary tract K83.8 COMPARISON: No relevant comparison available. TECHNIQUE: A comprehensive examination was performed utilizing a variety of imaging planes and imaging parameters to optimize visualization of suspected pathology. Magnetic resonance cholangiopancreatography was also performed. FINDINGS: LIVER: Normal. No enlargement, atrophy, abnormal density, or significant focal lesion. BILIARY: No visible dilatation or calcification. PANCREAS: No lesion, fluid collection, ductal dilatation, or atrophy. SPLEEN: No enlargement or focal lesion. KIDNEYS: Bilateral cortical cysts. No solid cortical mass. No hydronephrosis ADRENALS: No mass or enlargement. AORTA/VASCULAR: No aneurysm or dissection. RETROPERITONEUM: No mass or adenopathy. BOWEL/MESENTERY: No visible mass, obstruction, or bowel wall thickening. ABDOMINAL WALL: No mass or hernia. BONES: No bony lesion or fracture. LUNG BASES: No visible pleural disease. Lung bases not well assessed with MRI. OTHER: Negative. MR/MR abdomen wo con IMPRESSION: Normal appearance of the biliary tree Electronically authenticated by: ALONDRA MORILLO Date: 10/30/2023 09:30
== END 2023-10-29 15:21 | disposition home or self-care (01) ==
LOC: MRI 15:20
PROVIDERS: PCP Family Medicine; Visit Provider Family Medicine
DX: K83.8 Other specified diseases of biliary tract (principal)
CPT/HCPCS: 74181

== ENCOUNTER 2023-12-10 13:58 | Outpatient (OUT) | payer OTHER, SELFPAY | END 2023-12-10 13:59 | disposition home or self-care (01) | LOC: PST 13:58 | PROVIDERS: PCP Family Medicine; Visit Provider Surgery | DX: Z01.818 Encounter for other preprocedural examination (principal); Z12.11 Encounter for screening for malignant neoplasm of colon ==

== ENCOUNTER 2023-12-18 07:09 | Day surgery (SDC) | payer OTHER, SELFPAY ==
--- NOTE | 2023-12-18 | OP_ITS ---
OPERATION DATE: 12/18/2023 PREOPERATIVE DIAGNOSIS: Colorectal screening. POSTOPERATIVE DIAGNOSIS: Normal colonoscopy to cecum. PROCEDURE: Colonoscopy to cecum. SURGEON: Sony Oconnor M.D. ANESTHESIA: Monitored anesthesia care. ESTIMATED BLOOD LOSS: Zero. INDICATIONS AND CONSENT: Patient is a 58-year-old male presents for colorectal screening. Indications, risks, benefits, alternatives of proceeding with colonoscopy were explained extensively to the patient, including the risks of bleeding, colon perforation or anesthetic complications. All of his questions were answered. Informed consent was obtained. PROCEDURE: Patient brought to the operating room, placed in the left lateral decubitus position. Monitored anesthesia care was provided. Rectal exam was performed which showed no masses or blood. The scope was inserted into the anal canal. Under direct visualization was advanced. It was advanced to the cecum where cecal markings were clearly identified. There was noted to be a good prep. Upon withdrawal of the scope, mucosal surfaces were carefully examined. There were no mass lesions or polyps. No inflammatory changes or ulcerations. No significant diverticulosis. The scope was retroflexed in the anal canal. There was no significant hemorrhoidal disease. Scope was then withdrawn. Patient tolerated procedure well, was sent to recovery room in good condition. Follow up screening colonoscopy should be in 10 years. CC: Jacky Perez M.D. JUSTIN
--- OUTSIDE RECORDS SUMMARY | 2023-12-18 07:11 | XMS_ITS | CCD ---
Author Organization [facility] Care Team Providers Care Ict Project Manager Name Role Phone SHAUN Lester, DR DE Primary Care Unavailable SHAUN ., DR DE Consulting Unavailable SHAUN ., DR DE Attending Unavailable SHAUN ., DR DE Admitting Unavailable LARY, DR JEANINE Cuenca Consulting Unavailable SHAUN ., DR DE Primary Care Unavailable SHAUN ., DR DE Consulting Unavailable SHAUN ., DR DE Attending Unavailable SHAUN ., DR DE Admitting Unavailable Jacky Dunn Primary Care Physician [phone] Sony TANNER Attending Unavailable Jacky Dunn Referring Unavailable Allergies Allergy Classification Reported Allergen(s) Allergy Type Date of Onset Reaction(s) Facility (1 source) No Known Medication Allergies; Translations: [No Known Medication Allergies] Propensity to adverse reactions (disorder) [facility] Repository Medications Current Medications Medication Drug Class(es) Dates Sig (Normalized) Sig (Original) pantoprazole 40 mg delayed release oral tablet (1 source) Proton Pump Inhibitor Start: 09-25-2023 take 1 tablet by mouth once daily Protonix 40 mg Tab-DR 40 mg = 1 tab(s), Oral, Daily, Refills(s) 0 Start Date: 09/25/23 Status: Ordered Problems Problem Classification Problem Date Documented Date Episodic/Chronic Esophageal disorders (1 source) Gastroesophageal reflux disease 10-21-2023 Chronic Hemorrhoids (1 source) Hemorrhoids 10-21-2023 Episodic Other hereditary and degenerative nervous system conditions (1 source) Essential tremor 10-21-2023 Chronic Other nutritional; endocrine; and metabolic disorders (1 source) Overweight 10-21-2023 Episodic Other nutritional; endocrine; and metabolic disorders (1 source) Overweight in adulthood with body mass index of 25 or more but less than 30 11-05-2023 Episodic Other screening for suspected conditions (not mental disorders or infectious disease) (2 sources) Encounter for screening for malignant neoplasm of prostate; Translations: [Screening for malignant neoplasm of colon done] Onset: 07-03-2022 Episodic Other upper respiratory disease (1 source) Seasonal allergic rhinitis 10-21-2023 Chronic Spondylosis; intervertebral disc disorders; other back problems (1 source) Other intervertebral disc degeneration, lumbosacral region; Translations: [OTH IV DISC DEGEN LUMBOSACRAL RGN] Onset: 11-30-2022 Chronic Spondylosis; intervertebral disc disorders; other back problems (5 sources) Radiculopathy, lumbar region; Translations: [Lumbar radiculopathy] Onset: 11-28-2022 Episodic Thyroid disorders (1 source) Hypothyroidism 10-21-2023 Chronic Unclassified (2 sources) Patient encounter status 10-21-2023 Results Test Name Value Interpretation Reference Range Facil ity Consent for Procedure/Surger yon 11-07-2023 Consent for Procedure/Surgery [id number] #1.00TIFF Normal [facility] Facesheeton 11-06-2023 Facesheet [id number]# 1.00TIFF Normal [facility] Ambulatory Visit Summaryon 0 11-05-2023 Ambulatory Visit Summary 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 Discharge Vitals Heart Rate (Peripheral) 70 Respiratory Rate 16 Blood Pressure 118/78 Height 180.34 cm Height 71 in Weight 93 kg Weight 204.6 lb BMI 28.6 Medications What How Much When Instructions Unchanged pantoprazole (Protonix 40 mg Tab-DR) 1 Tablets By Mouth Every day Contact prescribing physician if questions or concerns Medications and Immunizations Administered Not Given influenza virus vaccine, inactivated, Patient Refuses Allergies No Known Allergies No Known Medication Allergies Problems Ongoing - Any problem that you are currently receiving treatment for. BMI 28.0-28.9,adult Essential tremor. GERD (gastroesophageal reflux disease) Hemorrhoids Hypothyroidism Lumbar radiculopathy Overweight Screening for colorectal cancer Screening for malignant neoplasm of colon Seasonal allergic rhinitis Patient Survey You may receive a survey via text or e-mail asking about your office visit. Please share your experience with us by completing your survey. We appreciate your feedback and thank you for choosing us for your care. Normal [facility] Physician Referralon 024 Physician Referral [id number]# 1.00TIFF Normal [facility] Physician Referralon 024 Physician Referral [id number] #1.00TIFF Normal [facility] XR LSPINE MIN 4 VIEWSon 11-01 XR [...] JEANINE BARTH Date: 2022-11-28 10:09 Normal [facility] INSULINon 07-03-2022 Insulin 11.7 uIU/mL Normal 2.6-24.9 [facility] Comment on above: Performed By: #### I NSULIN #### [facility] [address] [address] [address] Navarro Biggs TESTOSTERONE, TOTALon 2021 Testosterone [Mass/Vol] 586 ng/dL Normal 264-916 [facility] Comment on above: Result Comment: Adul t male reference interval is based on a population of healthy nonobese males (BMI <30) between 19 and 39 years old. vicky Anderson.al. JCEM 2017,102;7080-8947. PMID: [id number]. Performed By: #### T ESTTOT #### [facility] [address] [place] [address] Dr. Navarro Biggs CBC AUTO DIFFon 07-02-2022 BASO # 0.1 103/ul Normal 0.0-0.1 [facility] Comment on above: Performed By: #### P SASC #### [facility] [address] [place] [address] Dr. Navarro Biggs Basophils/100 WBC (Bld) 1.0 % Normal 0.2-2.0 [facility] Comment on above: Performed By: #### P SASC #### [facility] [address] [place] [address] Dr. Navarro Biggs EO # 0.1 103/ul Normal 0.0-0.7 [facility] Comment on above: Performed By: #### P SASC #### [facility] [address] [place] [address] Dr. Navarro Biggs Eosinophils/100 WBC (Bld) 1.3 % Normal 0.9-7.0 [facility] Comment on above: Performed By: #### P SASC #### [facility] [address] [place] [address] Dr. Navarro Biggs Erythrocyte distribution width (RBC) [Ratio] 11.7 % Normal 11.0-15.0 [facility] Comment on above: Performed By: #### P SASC #### [facility] [address] [place] [address] Dr. Navarro Biggs Hematocrit (Bld) [Volume fraction] 48.3 % Normal 42.0-54.0 [facility] Comment on above: Performed By: #### P SASC #### [facility] [address] [place] [address] Dr. Navarro Biggs Hemoglobin (Bld) [Mass/Vol] 16.7 g/dL Normal 14.0-18.0 [facility] Comment on above: Performed By: #### P SASC #### [facility] [address] [place] [address] Dr. Navarro Biggs IG # 0.01 10e3/ul Normal 0.00-0.03 [facility] Comment on above: Performed By: #### P SASC #### [facility] [address] [address] [address] Navarro Biggs IG % 0.2 % Normal 0.0-0.5 [facility] Comment on above: Performed By: #### P SASC #### [facility] [address] [address] [address] Navarro Biggs LYMPH # 1.9 103/ul Normal 1.2-3.8 [facility] Comment on above: Performed By: #### P SASC #### [facility] [address] [place] [address] Dr. Navarro Biggs Lymphocytes/100 WBC (Bld) 36.6 % Normal 20.5-60.0 [facility] Comment on above: Performed By: #### P SASC #### [facility] [address] [place] [address] Dr. Navarro Biggs MANUAL DIFF REQ NO Normal [facility] Comment on above: Performed By: #### P SASC #### [facility] [address] [place] [address] Dr. Navarro Biggs MCH (RBC) [Entitic mass] 31.4 pg Normal 25.9-34.0 [facility] Comment on above: Performed By: #### P SASC #### [facility] [address] [place] [address] Dr. Navarro Biggs MCHC (RBC) [Mass/Vol] 34.6 g/dL Normal 29.9-35.2 [facility] Comment on above: Performed By: #### P SASC #### [facility] [address] [place] [address] Dr. Navarro Biggs MCV (RBC) [Entitic vol] 90.8 fL Normal 80.0-94.0 [facility] Comment on above: Performed By: #### P SASC #### [facility] [address] [place] [address] Dr. Navarro Biggs MONO # 0.6 103/ul Normal 0.3-0.8 [facility] Comment on above: Performed By: #### P SASC #### [facility] [address] [address] [address] Navarro Biggs Monocytes/100 WBC (Bld) 11.3 % Normal 1.7-12.0 [facility] Comment on above: Performed By: #### P SASC #### [facility] [address] [address] [address] Navarro Biggs NEUT # 2.6 103/ul Normal 1.4-6.5 [facility] Comment on above: Performed By: #### P SASC #### [facility] [address] [address] [address] Navarro Biggs Neutrophils/100 WBC (Bld) 49.6 % Normal 43.0-75.0 [facility] Comment on above: Performed By: #### P SASC #### [facility] [address] [place] [address] Dr. Navarro Biggs Platelet mean volume (Bld) [Entitic vol] 11.5 fL Normal 9.5-13.5 [facility] Comment on above: Performed By: #### P SASC #### [facility] [address] [place] [address] Dr. Navarro Biggs PLT 150 103/ul Normal 150-450 [facility] Comment on above: Performed By: #### P SASC #### [facility] [address] [place] [address] Dr. Navarro Biggs RBC 5.32 106/ul Normal 4.70-6.10 [facility] Comment on above: Performed By: #### P SASC #### [facility] [address] [place] [address] Dr. Navarro Biggs WBC 5.2 103/ul Normal 4.0-11.0 [facility] Comment on above: Performed By: #### P SASC #### [facility] [address] [place] [address] Dr. Navarro Biggs CULTURE URINEon 07-02-2022 CULTURE URINE Culture Observations: NO GROWTH. Normal [facility] Comment on above: Performed By: #### U RCX #### [facility] [address] [address] [address] Navarro Biggs FREE THYROXINE INDEX T7on FTI 1.69 Normal 1.30-4.50 [facility] Comment on above: Performed By: #### P SASC #### [facility] [address] [address] [address] Navarro Biggs T3U 36.0 % Normal 33.0-40.0 [facility] Comment on above: Performed By: #### P SASC #### [facility] [address] [address] [address] Navarro Biggs T4 [Mass/Vol] 4.70 ug/dL Normal 4.50-12.10 [facility] Comment on above: Performed By: #### P SASC #### [facility] [address] [address] [address] Navarro Biggs GLYCOHEMOGLOBIN A1Con 2021 ADA RECOMMENDATION SEE BELOW Normal [facility] Comment on above: Result Comment: ADA RECOMMENDED LIMIT 4.0 - 6.0 ADA THERAPEUTIC TARGET < 7.0 ACTION SUGGESTED > 7.0 Performed By: #### A 1C #### [facility] [address] [address] [address] Navarro Biggs Glucose [Mass/Vol] 111 mg/dL Normal [facility] Comment on above: Performed By: #### A 1C #### [facility] [address] [address] [address] Navarro Biggs HbA1c (Bld) [Mass fraction] 5.5 % Normal 4.5-6.2 [facility] Comment on above: Performed By: #### A 1C #### [facility] [address] [address] [address] Navarro Biggs LIPID PROFILEon 07-02-2022 CHOL-HDL RATIO NORM SEE BELOW Normal [facility] Comment on above: Result Comment: 3.3 - 4.4 LOW RISK 4.4 - 7.1 AVERAGE RISK 7.1 - 11.0 MODERATE RISK >11.0 HIGH RISK Performed By: #### T SH, T7, URIC, CMP, LIPID #### [facility] [address] [address] [address] Navarro Biggs Cholesterol [Mass/Vol] 211 mg/dL Critically high <=200 [facility] Comment on above: Performed By: #### T SH, T7, URIC, CMP, LIPID #### [facility] [address] [address] [address] Navarro Biggs Cholesterol in HDL [Mass/Vol] 56 mg/dL Normal 40-60 [facility] Comment on above: Performed By: #### T SH, T7, URIC, CMP, LIPID #### [facility] [address] [address] [address] Navarro Biggs Cholesterol in LDL [Mass/Vol] 139.0 mg/dL Normal [facility] Comment on above: Performed By: #### T SH, T7, URIC, CMP, LIPID #### [facility] [address] [place] [address] Dr. Navarro Biggs Cholesterol.total/Cho lesterol in HDL [Mass ratio] 3.8 {ratio} Normal [facility] Comment on above: Performed By: #### T SH, T7, URIC, CMP, LIPID #### [facility] [address] [address] [address] Navarro Biggs HDL NORMAL > or = 60 mg/dl - LOW CARDIOVASCULAR RISK <40 mg/dl - HIGH CARDIOVASCULAR RISK Normal [facility] Comment on above: Performed By: #### T SH, T7, URIC, CMP, LIPID #### [facility] [address] [address] [address] Navarro Biggs LDL CALC NORMAL SEE BELOW Normal [facility] Comment on above: Result Comment: <100 mg/dl OPTIMAL 100 - 129 mg/dl NEAR OR ABOVE OPTIMAL 130 - 159 mg/dl BORDERLINE HIGH 160 - 189 mg/dl HIGH >190 mg/dl VERY HIGH Performed By: #### T SH, T7, URIC, CMP, LIPID #### [facility] [address] [address] [address] Navarro Biggs Triglyceride [Mass/Vol] 80 mg/dL Normal <=150 [facility] Comment on above: Performed By: #### T SH, T7, URIC, CMP, LIPID #### [facility] [address] [address] [address] Navarro Biggs VLDL CALC 16.0 mg/dL Normal [facility] Comment on above: Performed By: #### T SH, T7, URIC, CMP, LIPID #### [facility] [address] [address] [address] Navarro Biggs PROF 14(COMP METB)on 022 Albumin [Mass/Vol] 3.9 g/dL Normal 3.4-5.0 [facility] Comment on above: Performed By: #### T SH, T7, URIC, CMP, LIPID #### [facility] [address] [place] [address] Dr. Navarro Biggs Albumin/Globulin [Mass ratio] 1.3 {ratio} Normal [facility] Comment on above: Performed By: #### T SH, T7, URIC, CMP, LIPID #### [facility] [address] [place] [address] Dr. Navarro Biggs ALP [Catalytic activity/Vol] 65 U/L Normal 46-116 [facility] Comment on above: Performed By: #### T SH, T7, URIC, CMP, LIPID #### [facility] [address] [place] [address] Dr. Navarro Biggs ALT [Catalytic activity/Vol] 31 U/L Normal 16-63 [facility] Comment on above: Performed By: #### T SH, T7, URIC, CMP, LIPID #### [facility] [address] [address] [address] Navarro Biggs Anion gap [Moles/Vol] 7.8 mmol/L Normal [facility] Comment on above: Performed By: #### T SH, T7, URIC, CMP, LIPID #### [facility] [address] [place] [address] Dr. Navarro Biggs AST [Catalytic activity/Vol] 11 U/L Critically low 15-37 [facility] Comment on above: Performed By: #### T SH, T7, URIC, CMP, LIPID #### [facility] [address] [place] [address] Dr. Navarro Biggs Bilirubin [Mass/Vol] 1.3 mg/dL Critically high 0.2-1.0 [facility] Comment on above: Performed By: #### T SH, T7, URIC, CMP, LIPID #### [facility] [address] [place] [address] Dr. Navarro Biggs Calcium [Mass/Vol] 8.9 mg/dL Normal 8.5-10.1 [facility] Comment on above: Performed By: #### T SH, T7, URIC, CMP, LIPID #### [facility] [address] [place] [address] Dr. Navarro Biggs Chloride [Moles/Vol] 102 mmol/L Normal 98-107 [facility] Comment on above: Performed By: #### T SH, T7, URIC, CMP, LIPID #### [facility] [address] [place] [address] Dr. Navarro Biggs CO2 [Moles/Vol] 30.7 mmol/L Normal 21.0-32.0 [facility] Comment on above: Performed By: #### T SH, T7, URIC, CMP, LIPID #### [facility] [address] [place] [address] Dr. Navarro Biggs Creatinine [Mass/Vol] 0.99 mg/dL Normal 0.70-1.30 [facility] Comment on above: Performed By: #### T SH, T7, URIC, CMP, LIPID #### [facility] [address] [place] [address] Dr. Navarro Biggs EGFR-AF CZECH >60 Normal >=60 [facility] Comment on above: Performed By: #### T SH, T7, URIC, CMP, LIPID #### [facility] [address] [place] [address] Dr. Navarro Biggs EGFR-NON AF CZECH >60 Normal >=60 [facility] Comment on above: Performed By: #### T SH, T7, URIC, CMP, LIPID #### [facility] [address] [place] [address] Dr. Navarro Biggs Globulin (S) [Mass/Vol] 3.1 g/dL Normal [facility] Comment on above: Performed By: #### T SH, T7, URIC, CMP, LIPID #### [facility] [address] [address] [address] Navarro Biggs Glucose [Mass/Vol] 98 mg/dL Normal 74-106 [facility] Comment on above: Performed By: #### T SH, T7, URIC, CMP, LIPID #### [facility] [address] [address] [address] Navarro Biggs Potassium [Moles/Vol] 4.5 mmol/L Normal 3.5-5.1 [facility] Comment on above: Performed By: #### T SH, T7, URIC, CMP, LIPID #### [facility] [address] [place] [address] Dr. Navarro Biggs Protein [Mass/Vol] 7.0 g/dL Normal 6.4-8.2 [facility] Comment on above: Performed By: #### T SH, T7, URIC, CMP, LIPID #### [facility] [address] [place] [address] Dr. Navarro Biggs Sodium [Moles/Vol] 136 mmol/L Normal 136-145 [facility] Comment on above: Performed By: #### T SH, T7, URIC, CMP, LIPID #### [facility] [address] [place] [address] Dr. Navarro Biggs Urea nitrogen [Mass/Vol] 17.0 mg/dL Normal 7.0-18.0 [facility] Comment on above: Performed By: #### T SH, T7, URIC, CMP, LIPID #### [facility] [address] [place] [address] Dr. Navarro Biggs Urea nitrogen/Creatinine [Mass ratio] 17.2 mg/mg Normal [facility] Comment on above: Performed By: #### T SH, T7, URIC, CMP, LIPID #### [facility] [address] [place] [address] Dr. Navarro Biggs TSHon 07-02-2022 TSH 3.276 uIU/mL Normal 0.358-3.740 [facility] Comment on above: Performed By: #### P SASC #### [facility] [address] [address] [address] Navarro Biggs UA RANDOM W/MICROSCOPICon BACTERIA NONE SEEN Normal NONE SEEN [facility] Comment on above: Performed By: #### U AMIC #### [facility] [address] [address] [address] Navarro Biggs Bilirubin Ql (U) Negative Normal NEGATIVE [facility] Comment on above: Performed By: #### U AMIC #### [facility] [address] [address] [address] Navarro Biggs CAST NONE SEEN Normal NONE SEEN [facility] Comment on above: Performed By: #### U AMIC #### [facility] [address] [address] [address] Navarro Biggs Clarity (U) CLEAR Normal CLEAR [facility] Comment on above: Performed By: #### U AMIC #### [facility] [address] [address] [address] Navarro Biggs Color (U) LT. YELLOW Normal YELLOW [facility] Comment on above: Performed By: #### U AMIC #### [facility] [address] [address] [address] Navarro Biggs Crystals LM Nom (Urine sed) NONE SEEN Normal NONE SEEN [facility] Comment on above: Performed By: #### U AMIC #### [facility] [address] [address] [address] Navarro Biggs Epithelial cells LM Ql (Urine sed) NONE SEEN Normal NONE SEEN /RARE [facility] Comment on above: Performed By: #### U AMIC #### [facility] [address] [address] [address] Navarro Biggs Glucose Ql (U) Negative Normal NEGATIVE [facility] Comment on above: Performed By: #### U AMIC #### [facility] [address] [address] [address] Navarro Biggs Hemoglobin Ql (U) Negative Normal NEGATIVE [facility] Comment on above: Performed By: #### U AMIC #### [facility] [address] [address] [address] Navarro Biggs Ketones Ql (U) Negative Normal NEGATIVE [facility] Comment on above: Performed By: #### U AMIC #### [facility] [address] [address] [address] Navarro Biggs LEUKOCYTES Negative Normal NEGATIVE [facility] Comment on above: Performed By: #### U AMIC #### [facility] [address] [address] [address] Navarro Biggs MUCOUS NONE SEEN Normal NONE SEEN [facility] Comment on above: Performed By: #### U AMIC #### [facility] [address] [address] [address] Navarro Biggs Nitrite Ql (U) Negative Normal NEGATIVE [facility] Comment on above: Performed By: #### U AMIC #### [facility] [address] [place] [address] Dr. Navarro Biggs pH (U) 7.5 [pH] Normal 5-9 [facility] Comment on above: Performed By: #### U AMIC #### [facility] [address] [place] [address] Dr. Navarro Biggs RBC 0-2 Normal 0-2 [facility] Comment on above: Performed By: #### U AMIC #### [facility] [address] [place] [address] Dr. Navarro Biggs SPEC GRAVITY 1.020 Normal 1.005-<=1.025 [facility] Comment on above: Performed By: #### U AMIC #### [facility] [address] [place] [address] Dr. Navarro Biggs UA PROTEIN Negative Normal NEGATIVE/ TRACE [facility] Comment on above: Performed By: #### U AMIC #### [facility] [address] [place] [address] Dr. Navarro Biggs Urobilinogen Qn (U) 0.2 {Jayden'U}/dL Normal 0.2 - 1. 0 [facility] Comment on above: Performed By: #### U AMIC #### [facility] [address] [address] [address] Navarro Biggs WBC 0-2 Abnormal NONE SEEN [facility] Comment on above: Performed By: #### U AMIC #### [facility] [address] [address] [address] Navarro Biggs URIC ACID SERUMon 07-02-2022 Urate [Mass/Vol] 4.8 mg/dL Normal 3.5-7.2 [facility] Comment on above: Performed By: #### T SH, T7, URIC, CMP, LIPID #### [facility] [address] [address] [address] Navarro Biggs Vital Signs Date Time Vital Sign Value Performing Clinician Diana joshi 11-05-2023 15:27-0500 Blood Pressure Location Sony NILL [facility] [place] 11-05-2023 15:27-0500 Diastolic blood pressure 78 mm[Hg] Sony NILL [facility] [place] 11-05-2023 15:27-0500 Heart rate 70 /min Sony NILL [facility] 11-05-2023 15:27-0500 Respiratory rate 16 /min Sony NILL [facility] 11-05-2023 15:27-0500 Systolic blood pressure 118 mm[Hg] Sony NILL [facility] Encounters Encounter Date Encounter Type Care Provider Facility Start: 11-05-2023 End: 11-06-2023 ambulatory Sony TANNER Facility: [place] Start: 11-05-2023 End: 11-05-2023 Patient encounter procedure Sony R NILL [facility] Start: 09-27-2023 ambulatory Sony TANNER Facility:[facility] Start: 11-28-2022 End: 11-29-[address] JACKY DUNN . Facility: Start: 07-03-2022 Encounter for genera l adult medical examination without abnormal findings DR JACKY DUNN . [facility] Start: 07-02-2022 End: 07-03-[address] JACKY DUNN . Facility: Start: 07-02-2022 End: 07-03-2022 Encounter for general adult medical examination without abnormal findings DR JACKY DUNN . Facility:[facility] Procedures Date Procedure Procedure Detail Performing Clinician Start: 07-02-[address] SAPNA DUNN . Comment on above: Performed By: #### [facility] #### [facility] [address] [address] [address] Navarro Biggs Vasectomy Sony TANNER Immunizations Immunization Date Immunization Notes Care Provider Fa cility NEGATED: Highlighted row has not occurred!11-05-2023 influenza virus vaccine, unspecified formulation Sony CIRO [facility] Payers Date Payer Category Payer Unknown [id number] [id number] 1965 Unknown [id number] 1965 Unknown [id number] 1959 Unknown [id number] 1959 Unknown [id number] Social History Date Type Detail Facility Start: 11-05-2023 Tobacco smoking status Ex-smoker (fi nding) [facility] Tobacco smoking status Never Gener [facility] Sex Assigned At Male [facility] Functional Status Date Assessment Result Facility 11-05-2023 Functional Status N/A General [facility] Clinical Note 11-05-2023 Note Date & Type Note Facility 11-05-2023 Note Chief Complaint consultation for colonoscopy HPI Staff 57 year old male presents on consultation from Dr. Dunn for screening colonoscopy. Denies abdominal or rectal pain. No rectal bleeding or change in bowel habits. Denies nausea or vomiting. No unexplained weight loss. Never had colonoscopy in the past. No known family history of colon cancer. History of Present Illness 57 yo male with h/o hypothyroidism, GERD, essential tremor, lumbar radiculopathy, referred for colorectal screening; denies change in bms or blood in stools; no abdominal complaints; denies asa or NSAID use, no SBE prophylaxis; no abdominal operations or previous colonoscopy; no fmhx of GI malignancy or IBD; no tobacco use. Review of Systems PHQ Score Initial Depression Screen Score: 0 SCORE ROS - Provider Constitutional: no fever, no sweats, no weight loss. Eyes: no glasses, no blurred vision, no visual loss. ENMT: no dentures, no hoarseness, no swallowing difficulties, no hearing loss, no ear infection(s), no nose bleeds. Cardiovascular: normal blood pressure, no chest pain, regular heartbeat, no heart murmur. Respiratory: no shortness of breath, no cough, no asthma, no wheezing. Gastrointestinal: no nausea, no vomiting, no diarrhea, no constipation, no blood in stool, no change in bowel habits, no abdominal pain, no hepatitis. Genitourinary: no kidney stones, no urine infection, no dysuria. Musculoskeletal: no pain, no weakness. Skin: no changing moles, no rash, no skin lumps. Neurologic: no seizures, no epilepsy, no headache. Psychiatric: no emotional or psychiatric problem. Heme/Lymph: no bleeding problems, no anemia, no blood clots, no transfusions. Allergy/Immunologic: no swollen lymph nodes/glands, no IV drug abuse. Other: Additional ROS info: Except as noted in the above Review of Systems and in the History of Present Illness, all other systems have been reviewed and are negative or noncontributory. Physical Exam Vitals & Measurements HR: 70(Peripheral) RR: 16 BP: 118/78 HT: 71 in HT: 180.34 cm WT: 93 kg WT: 204.6 lb BMI: 28.6 HEENT: normal conjunctiva, sclera clear, no scleral icterus, EOM intact, PERRLA, oral mucosa moist without lesions. Neck: trachea midline, no mass, symmetric, no thyromegaly or nodules, no adenopathy Respiratory: lungs CTA, respirations non labored. Cardiovascular: regular rate and rhythm, no murmur, no pedal edema or varicosities. Gastrointestinal: soft, non distended, no tenderness, no masses, no palpable hernias, diastasis recti no, no hepatosplenomegaly; normal bs Lymphatic: no cervical adenopathy, no supraclavicular adenopathy. Musculoskeletal: normal gait, digits and nails without infection, nodes, cyanosis, clubbing. Skin: no rashes, no lesions, no ulcers, no subcutaneous nodules, induration. Psychiatric/Neuro: oriented to time, place, person, judgement normal, affect appropriate for age, insight intact, no focal deficits. Tests: review of old records completed , Discussed surgical options, risks, and possible complications with patient. Assessment/Plan 1. Screening for malignant neoplasm of colon (Z12.11: Encounter for screening for malignant neoplasm of colon) plan colonoscopy under anesthesia, informed consent obtained. Follow-up No qualifying data available Problem List/Past Medical History Ongoing BMI 28.0-28.9,adult Essential tremor. GERD (gastroesophageal reflux disease) Hemorrhoids Hypothyroidism Lumbar radiculopathy Overweight Screening for colorectal cancer Screening for malignant neoplasm of colon Seasonal allergic rhinitis Historical No qualifying data Procedure/Surgical History Vasectomy. Medications Protonix 40 mg Tab-DR, 40 mg= 1 tab(s), Oral, Daily Allergies No Known Allergies No Known Medication Allergies Social History Alcohol - Denies Alcohol Use, 11/05/2023 Substance Abuse - Denies Substance Abuse, 11/05/2023 Tobacco Former smoker, quit more than 30 days ago Tobacco Use:. Never Smokeless Tobacco Use:. Cigarettes, 1 per day. Started age 14.0 Years. Stopped age 18 Years., 11/05/2023 Family History Abdominal aortic aneurysm: Father. Immunizations Vaccine Date Status Comments influenza virus vaccine, inactivated - Not Given Patient Refuses [facility] Comment on above: Result Comment: Elec tronically Signed By: CIRO PENALOZA, Sony Pierce\Date and Time Signed: 11/05/23 15:46 EST Evaluation + Plan note Note Date & Type Note Facility Evaluation + Plan note No data available for this section [facility] Discharge instructions Note Date & Type Note Facility Hospital Discharge instructions No data available for this section [facility] Progress note Note Date & Type Note Facility Progress note No data available for this section [facility] Summary Purpose Family History No Family History Records Found No data available for this section No Family History Records Found Advance Directives No Advanced Directives Records FoundNo Advanced Directives Records Found Additional Source Comments (unrecognized sect ion and content) No Status Records FoundNo Status Records Found INFORMATION SOURCE (unrecogn ized section and content) DATE CREATED AUTHOR 12/02/2022 [facility] DATE CREATED AUTHOR AUTHOR'S ORGANIZ ATION 11/08/2023 [facility] Patient Care team informatio n (unrecognized section and content) Personnel Name: Jacky Dunn MD Address: Address: [address] [place] [address] FOR RECORDS PERTAINING TO PATIENTS WHO ARE [...] BE BASED ON THE PRIMARY CLINICAL RECORDS. [facility]. provides no warranty or guarantee of the accuracy or completeness of information in this document.
[2023-12-18 07:12] VITALS: BP 142/88; PULSE 71; TEMP 35.9; O2SAT 95; BMI 27.3
[2023-12-18] MEDS: LACTATED RINGER'S SOLUTION 1,000 ML 50 ML IV (07:36)
[2023-12-18 09:48] VITALS: BP 96/61; PULSE 65; TEMP 36.6; O2SAT 97
[2023-12-18 10:03] VITALS: BP 106/87; PULSE 70; O2SAT 99
[2023-12-18 10:18] VITALS: BP 113/82; PULSE 52; O2SAT 99
== END 2023-12-18 10:18 | disposition home or self-care (01) ==
PROVIDERS: PCP Family Medicine; Visit Provider Surgery
PROC: (CPT 45378; principal; 2023-12-18 08:30)
DX: Z12.11 Encounter for screening for malignant neoplasm of colon (principal); E03.9 Hypothyroidism, unspecified; K21.9 Gastro-esophageal reflux disease without esophagitis; G25.0 Essential tremor; M54.16 Radiculopathy, lumbar region; Z79.899 Other long term (current) drug therapy; Z87.891 Personal history of nicotine dependence
CPT/HCPCS: 45378

== ENCOUNTER 2025-06-05 06:28 | Outpatient (OUT) | payer OTHER, SELFPAY ==
--- OUTSIDE RECORDS SUMMARY | 2025-05-31 11:30 | XMS_ITS ---
Author Organization [facility] in [place] Address [address] [place] [address] Care Team Providers Care Professional Housing Consultant Name Role Phone Marcos Perez Primary Care Provider Allergies No Known Allergies REASON FOR VISIT annual wellness, patient is co neuropathy, requesting yearly labs Medications Medication SIG (Take, Route, Fr equency, Duration) Notes Start Date End Date Status Avodart 0.5 MG 1 capsule Orally Onc e a day; Duration: 30 day(s) 05/31/2025 Active tiZANidine HCl 4 MG 2 tabs Orally qhs; D uration: 30 days 01/18/2025 Active Tamsulosin HCl 0.4 MG 1 capsule Orally O nce a day; Duration: 30 day(s) 05/31/2025 Active Tadalafil 20 MG 1 tablet as needed O rally Q 3 days max 01/18/2025 Active Social History Tobacco Use: Social History Observation Description Date Details (start date - stop date) Former Smoker 10/02/1984 - 10/02/1986 Tobacco Use/Smoking Question Answer Notes Patient is a former smoker When did you start smoking? 10/02/1984 When did you stop smoking? 10/02/1986 How long has it been since you last smoked? > 10 years AUDIT-C (Standard) Question Answer Notes Did you have a drink containing alcohol in the p ast year? No Points 0 Interpretation Negative Problems Problem Type SNOMED Code ICD Code Onset Dates Problem Status W/U Status Risk Notes Problem Benign prostatic hyperplasia (497089266) BPH (benign prostatic hyperplasia) (N40.0) Active confirmed Vital Signs Weight 197 lbs 05/31/2025 Height 71 in 05/31/2025 Blood pressure systolic 108 mm Hg 05/31/20 25 Blood pressure diastolic 78 mm Hg 025 BMI 27.47 kg/m2 05/31/2025 Encounters Encounter Location Date Provider Diagnosis [facility] [address] [place] [address] 05/31/2025 Marcos Perez Well adult Z00.00 an d BPH (benign prostatic hyperplasia) N40.0 Assessments Encounter Date Diagnosis (ICD Code) Assessment Notes Treatment Notes Treatment Clinical Notes Section Notes 05/31/2025 Well adult (ICD-10 - Z00.00) NCS for numb legs if labs ok we 05/31/2025 BPH (benign prostatic hyperplasia) (ICD-10 - N40.0) we Plan Of Treatment Medication Medication Name Sig Start Date Stop Date Notes Avodart 0.5 MG 1 capsule Orally Onc e a day; Duration: 30 day(s) 05/31/2025 Tamsulosin HCl 0.4 MG 1 capsule Orally O nce a day; Duration: 30 day(s) 05/31/2025 Treatment Notes Assessment Notes Well adult NCS for numb legs if labs ok Pending Test Test Name Order Date HEMOGLOBIN A1C (GLYCO) 05/31/2025 INSULIN, TOTAL 05/31/2025 LIPID PANEL (CHOL/TRIG/HDL/LDL) 05/31/20 25 THYROID PANEL (T4/TSH/FREE T3) PSA, SCREENING 05/31/2025 CMP (COMP MET LEDESMA) w/eGFR CKD-EPI 2024 CBC WITH DIFF 05/31/2025 Progress Notes * Cristian OSMAN WDOB:1965 (59 yo M)Acc No.[id number]:05/31/2025 Progress Note Patient: Cristian SUMMERS W Provider: Maegan Perez ([facility])MD :1965 A ge:59 Y S ex:Male Date:05/31/2025 Address:[id number] Check In:03:13 PM ESTCheck O ut:04:40 PM EST Subjective: * Chief Complaints: * A nnual wellnessPatient is co neuropathy, requesting yearly labs * ROS: E ENT: hearing changes d enies. v isual changes d enies.?non-healing mouth sores d enies. s wollen glands or neck lumps d enies. h oarseness d enies. s ore throat d enies. d ifficulty swallowing d enies. n ose bleeds d enies. n ld congestion d enies. e ar ache d enies. e ar discharge?denies. r inging in ears d enies. l ight sensitivity d enies. e ye pain d enies. b lurring d enies. e ye irritation d enies. d ouble vision d enies.?vision loss d enies. G eneral/Constitutional: Sweats: D enies. F atigue d enies. S leep problems d enies. A norexia d enies. M alaise d enies. W eight loss d enies.?Fatigue or Weakness d enies. F ever or Chills d enies. C ardiovascular: Shortness of Breath w/lying flat d enies. L ightheadedness/dizziness d enies. C hest tightness/ heavy pressure d enies. S welling of legs, ankles, or feet d enies. W aking up with shortness of breath d enies. C hest pain denies. P alpitations d enies. W eight gain d enies. R espiratory: Chronic or frequent cough d enies. C oughing up blood?denies. D ifficulty breathing d enies. P roductive cough d enies. S noring?denies. S hortness of breath that awakens from sleep (PND) d enies. C hest pain d enies. S putum production d enies. W heezing d enies. M usculoskeletal: Joint pain d enies. J oint Fluid d enies. B ack pain d enies. K nee pain d enies. N rohini pain d enies. J oint Stiffness d enies. M uscle cramps d enies. W eakness of muscles d enies. A rthritis d enies. M uscle aches d enies. P ain in shoulder(s) d enies. S wollen joints d enies. * Active Problem List M54.16 Lumbar radiculopathy Modified On:01/17/2023 Status:confirmed J40 Bronchitis Modified On:01/17/2023 Status:confirmed J32.9 Sinusitis Modified On:01/17/2023 Status:confirmed Z00.00 Well adult Modified On:09/26/2023 Status:confirmed M62.830 Back muscle spasm Modified On:01/17/2023 Status:confirmed K64.9 Hemorrhoids Modified On:01/17/2023 Status:confirmed L91.8 Skin tag Modified On:01/17/2023 Status:confirmed M72.2 Plantar fasciitis Modified On:01/17/2023 Status:confirmed E66.3 Over weight Modified On:01/17/2023 Status:confirmed J30.2 Allergic rhinitis, s easonal Modified On:01/17/2023 Status:confirmed N41.9 Prostatitis Modified On:01/17/2023 Status:confirmed N45.1 Epididymitis Modified On:01/17/2023 Status:confirmed R30.0 Dysuria Modified On:01/17/2023 Status:confirmed M19.90 Osteoarthritis Modified On:01/17/2023 Status:confirmed G25.0 Familial tremor Modified On:01/17/2023U Status:confirmed M23.90 Internal derangement of knee Modified On:01/17/2023U Status:confirmed D17.30 Lipoma of skin Modified On:01/17/2023U Status:confirmed Z98.52 History of vasectomy Modified On:01/17/2023U Status:confirmed M54.50 Low back pain, unspe cified Modified On:01/17/2023 Status:confirmed E03.9 Hypothyroidism, unsp ecified Modified On:09/30/2023U Status:confirmed K83.8 Other specified dise ases of biliary tract Modified On:10/08/2023U Status:confirmed S23.9XXA Thoracic sprain Modified On:01/18/2025W/U Status:confirmed N40.0 BPH (benign prostati c hyperplasia) Modified On:05/31/2025W/U Status:confirmed * Medical History: * Surgical History: v asectomy 2006Colonoscopy 12/18/23 * Hospitalization/Major Diagno stic Procedure: N o Hospitalization History. * Family History: F ather: . M other: alive. B rother(s): alive. S ister(s): alive. 5 brother(s) , 3 sister(s) - healthy. . * Social History: T obacco Use: T obacco Use/Smoking P atient is a f ormer smoker W hen did you start smoking? 0 10/02/1984 W hen did you stop smoking? 0 10/02/1986 H ow long has it been since you last smoked??> 10 years D rug/Alcohol: A TAMMY-C (Standard) D id you have a drink containing alcohol in the past year? N o P oints 0 I nterpretation N egative * Medications: T akingTadalafil 20 MG Tablet 1 tablet as needed Orally Q 3 days max tiZANidine HCl 4 MG Tablet 2 tabs Orally qhs Medication List reviewed and reconciled with the patientTaking Tadalafil 20 MG Tablet 1 tablet as needed Orally Q 3 days max Taking tiZANidine HCl 4 MG Tablet 2 tabs Orally qhs Medication List reviewed and reconciled with the patient * Allergies: N .K.D.A.no[Allergies Verified] Objective: * Vitals: W t:197lbs, Ht: 71 in, BP:108/78mm Hg, BMI:27.47Index, Ht-cm: 180.34 cm, Wt-k.36 kg. * Examination: P hysical Exam: GENERAL: w ell developed, well nourished, in no acute distress. HEAD: n ormocephalic/atraumatic. EYES: p upils equal, round and reactive to light, conjunctivae and sclerae normal. EARS: n o deformity or lesion of external ear, canals and TM appear normal bilaterally, TM's intact, not inflamed with normal light reflex, hearing grossly normal to conversational speech. NOSE: n o deformity, discharge, inflammation, or lesions.? MOUTH: m ucous membranes moist, normal oropharynx and posterior pharynx without lesions or exudates, tongue normal, dentition normal. NECK: n rohini supple, no masses or palpable cervical nodes, trachea midline, thyroid without nodules, masses, tenderness, or enlargement. CHEST: n o chest wall deformity, no chest wall tenderness.? LUNGS: n ormal respiratory effort and clear to auscultation, no wheezes, rales, or rhonchi, good air exchange. CARDIO: r egular rate and rhythm, normal S1 and S2, nor murmur, rub, or gallop. PULSES: n ormal capillary refill. ABDOMEN: s oft, non-distended, non-tender, no masses. MUSCULOSKELETAL: n o deformity or scoliosis noted, normal range of motion, joints normal, no erythema, edema, effusion, or ecchymosis. EXTREMITY: n o clubbing, cyanosis, edema, or deformity with normal ROM in both upper and lower bilateral extremities. NEUROLOGIC: g rossly normal. SKIN: n o rashes, ulcerations, or suspicious lesions. LYMPH NODES: n o cervical adenopathy, nodes normal. MENTAL STATUS: a lert and oriented x3, normal mood and affect. P rostate: Prostate Symmetry S ymmetrical Lobes. Prostate Tenderness R ight Lobe no tenderness, Left lobe no tenderness. Prostate Consistency L eft lobe normal consistency, Right lobe normal consistency. Prostate Size 5 0 grams. Prostate Nodule N o prostate Nodule. Assessment: * Assessment: 1. W ell adult - Z00.00 (Primary) 2 . B PH (benign prostatic hyperplasia) - N40.0 we Plan: * Treatment: * Procedure Codes: 3 078F DIAST BP < 80 MM [id number] SYST BP LT 130 MM HG * Preventive Medicine: Screenings/Counseling: B OR ACTION PLAN Above Normal BMI Follow-up D ietary management education, guidance, and counseling * * Sign off status: Completed Visit Status: C HK (Check Out) true * Provider: Maegna Perez ([facility])MD Date: 0 05/31/2025 Generated for Printi ng/Rupalg/eTransmitting on: 1 06:31 AM EDT History and Physical Notes * Examination Category Sub-Category Detail Notes Category Not es Prostate Prostate Symmetry Symmetrical Lobes Prostate Tenderness Right Lobe no tender ness, Left lobe no tenderness Prostate Consistency Left lobe normal co nsistency, Right lobe normal consistency Prostate Size 50 grams Prostate Nodule No prostate Nodule Physical Exam GENERAL: well developed, well nouris hed, in no acute distress HEAD: normocephalic/atraum atic EYES: pupils equal, round and reactive to light, conjunctivae and sclerae normal EARS: no deformity or lesi on of external ear, canals and TM appear normal bilaterally, TM's intact, not inflamed with normal light reflex, hearing grossly normal to conversational speech NOSE: no deformity, discha rge, inflammation, or lesions MOUTH: mucous membranes zechariah st, normal oropharynx and posterior pharynx without lesions or exudates, tongue normal, dentition normal NECK: neck supple, no mass es or palpable cervical nodes, trachea midline, thyroid without nodules, masses, tenderness, or enlargement CHEST: no chest wall deform ity, no chest wall tenderness LUNGS: normal respiratory e ffort and clear to auscultation, no wheezes, rales, or rhonchi, good air exchange CARDIO: regular rate and rhy thm, normal S1 and S2, nor murmur, rub, or gallop PULSES: normal capillary ref ill ABDOMEN: soft, non-distended, non-tender, no masses RECTAL: MUSCULOSKELETAL: no deformity or scol iosis noted, normal range of motion, joints normal, no erythema, edema, effusion, or ecchymosis EXTREMITY: no clubbing, cyanosi s, edema, or deformity with normal ROM in both upper and lower bilateral extremities NEUROLOGIC: grossly normal SKIN: no rashes, ulceratio ns, or suspicious lesions LYMPH NODES: no cervical adenopat hy, nodes normal MENTAL STATUS: alert and oriented x 3, normal mood and affect
--- OUTSIDE RECORDS SUMMARY | 2025-06-05 06:31 | XMS_ITS | Patient Health Record ---
Author Organization [facility] in [place] Address [address] [place] [address] Care Team Providers Care Financial Brokers Name Role Phone Marcos Perez Primary Care Provider Allergies No Known Allergies Reason For Referral No Information Medications Medication SIG (Take, Route, Fr equency, [...] since you last smoked? > 10 years Alcohol Screen (Audit-C) Question Answer Notes Did you have a drink contain ing alcohol in the past year? Yes How often did you have 6 or more drinks on one occasion in the past year? Never (0 point) How many drinks did you have on a typical day when you were drinking in the past year? 1 or 2 drinks (0 point) How often did you have a dri nk containing alcohol in the past year? Weekly (3 points) Points 3 Interpretation Negative AUDIT-C (Standard) Question Answer Notes Did you have a drink containing alcohol in the p ast year? No Points 0 Interpretation Negative Problems Problem Type SNOMED Code ICD Code Onset Dates Problem Status W/U Status Risk Notes Problem Hypothyroidism (07162109) Hypothyroidism, unspecified (E03.9) Active confirmed Problem Disorder of biliary tract (511095309) Other specified diseases of biliary tract (K83.8) Active confirmed Problem Epididymitis (45133157) Epididymitis (N45.1) Active confirmed Problem Dysuria (42089689) Dysuria (R30.0) Active confirmed Problem Osteoarthritis (320657336) Osteoarthritis (M19.90) Active confirmed Problem Benign prostatic hyperplasia (016430065) BPH (benign prostatic hyperplasia) (N40.0) Active confirmed Problem Lumbar radiculopathy (373890517) Lumbar radiculopathy (M54.16) Active confirmed Problem Bronchitis (75855640) Bronchitis (J40) Active confirmed Problem Sinusitis (45702078) Sinusitis (J32.9) Active confirmed Problem Well adult (041035959) Well adult (Z00.00) Active confirmed Problem Spasm of back muscles (616021569) Back muscle spasm (M62.830) Active confirmed Problem Hemorrhoids (55004448) Hemorrhoids (K64.9) Active confirmed Problem Skin tag (85240296) Skin tag (L91.8) Active confirmed Problem Plantar fasciitis (441504431) Plantar fasciitis (M72.2) Active confirmed Problem Overweight (931470784) Over weight (E66.3) Active confirmed Problem Seasonal allergic rhinitis (422186091) Allergic rhinitis, seasonal (J30.2) Active confirmed Problem Prostatitis (8569555) Prostatitis (N41.9) Active confirmed Problem Strain of back muscle (230882038) Thoracic sprain (S23.9XXA) Active confirmed Problem Essential tremor (488688030) Familial tremor (G25.0) Active confirmed Problem Internal derangement of knee (39216498) Internal derangement of knee (M23.90) Active confirmed Problem Lipoma of skin (424197138) Lipoma of skin (D17.30) Active confirmed Problem History of vasectomy (204651224) History of vasectomy (Z98.52) Active confirmed Problem Low back pain (756269744) Low back pain, unspecified (M54.50) Active confirmed Vital Signs Blood pressure diastolic 78 mm Hg 05/31/2025 Height 71 in 05/31/2025 Blood pressure systolic 108 mm Hg 05/31/2025 Weight 197 lbs 05/31/2025 BMI 27.47 kg/m2 05/31/2025 Encounters Encounter Location Date Provider Diagnosis [facility] [address] [place] [address] 05/31/2025 Marcos Hoy Well adult Z00.00 an d BPH (benign prostatic hyperplasia) N40.0 [facility] [address] [place] [address] 01/18/2025 Marcos Hoy Thoracic sprain S23.9XXA Assessments Encounter Date Diagnosis (ICD Code) Assessment Notes Treatment Notes Treatment Clinical Notes Section Notes 01/18/2025 Thoracic sprain (ICD-10 - S23.9XXA) 05/31/2025 Well adult (ICD-10 - Z00.00) NCS for numb legs if labs ok we 05/31/2025 BPH (benign prostatic hyperplasia) (ICD-10 - N40.0) we Plan Of Treatment Pending Test Test Name Order Date MRI : Abdomen without Contrast 4 Exercise Stress Nuclear Test 09/26/2023 CMP (COMPLETE METABOLIC PANEL) 4 HEMOGLOBIN A1C (GLYCO) 09/26/2023 HEMOGLOBIN A1C (GLYCO) 05/31/2025 INSULIN, TOTAL 05/31/2025 INSULIN, TOTAL 09/26/2023 LIPID PANEL (CHOL/TRIG/HDL/LDL) 09/26/19 24 LIPID PANEL (CHOL/TRIG/HDL/LDL) 05/31/20 25 CBC WITH DIFF 09/26/2023 PSA, PROSTATE-SPECIFIC ANTIGEN 4 T3 FREE, T4 FREE and TSH 09/28/2023 US Liver 09/28/2023 HEPATITIS PANEL, ACUTE 09/28/2023 LIVER PROFILE 09/28/2023 TESTOSTERONE, TOTAL 09/26/2023 THYROID PANEL (T4/TSH/FREE T3) 4 THYROID PANEL (T4/TSH/FREE T3) 5 PSA, SCREENING 05/31/2025 CMP (COMP MET LEDESMA) w/eGFR CKD-EPI 2024 CBC WITH DIFF 05/31/2025 Insurance Providers Payer Name Payer Address Payer Phone Subscriber Number Group Number Insured Name Patient Relationship to Insured Coverage Start Date Coverage End Date [employer] [address] [address] [place] [address] [phone] [id number] Cristian Orantes Self - patient is the insured Medications Administered Medication Instructions Date of Administration Dosage Notes Kenalog-40 01/21/2023 120 mg Ketorolac Tromethamine 01/21/2023 60 mg Medical (General) History Medical History History ICD Code Lumbar radiculopathy M54.16 Plantar fasciitis M72.2 Over weight E66.3 Internal derangement of knee M23.90 Well adult Z00.00 Osteoarthritis M19.90 Low back pain, unspecified M54.50 Skin tag L91.8 Bronchitis J40 Hemorrhoids K64.9 Prostatitis N41.9 Familial tremor G25.0 Dysuria R30.0 Lipoma of skin D17.30 Back muscle spasm M62.830 History of vasectomy Z98.52 Epididymitis N45.1 Allergic rhinitis, seasonal J30.2 Sinusitis J32.9 Surgical History Surgery Date(Month/Year) Colonoscopy 12/18/23 vasectomy 2005
--- OUTSIDE RECORDS SUMMARY | 2025-06-05 06:31 | XMS_ITS | CCD ---
Author Organization [facility] Care Team Providers Care Clinical Services Manager Name Role Phone CHRIS Lester, DR DE Primary Care Unavailable CHRIS ., DR DE Consulting Unavailable CHRIS ., DR DE Attending Unavailable CHRIS ., DR DE Admitting Unavailable LARY, DR JEANINE Cuenca Consulting Unavailable TERESSAY ., DR DE Primary Care Unavailable HOY ., DR DE Consulting Unavailable TERESSAY ., DR DE Attending Unavailable CHRIS ., DR DE Admitting Unavailable Kenisha Perez Primary Care Physician [phone] Sony TANNER Attending Kenisha Gilbert Referring Unavailable Sony TANNER Attending Unavailable Kenisha Perez MD Primary Care Provider FÉLIX PRASAD Attending Unavailable FÉLIX PRASAD Referring Unavailable FÉLIX PRASAD Attending Unavailable FÉLIX PRASAD Referring Unavailable FÉLIX PRASAD Attending Unavailable Allergies Allergy Classification Reported Allergen(s) Allergy Type Date of Onset Reaction(s) Facility (1 source) No Known Medication Allergies; Translations: [No Known Medication Allergies] Propensity to adverse reactions (disorder) [facility] Repository Medications Current Medications Medication Drug Class(es) Dates Sig (Normalized) Sig (Original) meloxicam 15 mg oral tablet (2 sources) Nonsteroidal Anti-inflammatory Drug Start: 04-13-2025 End: 05-04-2025 take 1 tablet by mouth once daily meloxicam (Mobic) 15 MG tablet Indications: Metatarsalgia of right foot , Right foot pain Take 1 tablet (15 mg) by mouth Daily for 21 days 21 tablet 04/13/2025 05/04/2025 Active pantoprazole 40 mg delayed release oral tablet (1 source) Proton Pump Inhibitor Start: 09-25-2023 take 1 tablet by mouth once daily Protonix 40 mg Tab-DR 40 mg = 1 tab(s), Oral, Daily, Refills(s) 0 Start Date: 09/25/23 Status: Ordered predniSONE 10 mg oral tablet (4 sources) Start: 03-23-2025 End: 04-04-2025 predniSONE (Deltasone) 10 MG tablet Indications: Metatarsalgia of right foot , Right foot pain Take 1 tablet (10 mg) by mouth See administration instructions for 12 days Take one tablet three times a day x 3 days, then take one tablet twice a day x 3 days, then take one tablet once a day x 3 days, then take 1/2 tab once a day x 3 days 20 tablet 03/23/2025 04/04/2025 Active Start: 02-23-2025 End: 03-07-2025 predniSONE (Deltasone) 10 MG tablet Indications: Plantar fasciitis Take 1 tablet (10 mg) by mouth See administration instructions for 12 days Take one tablet three times a day x 3 days, then take one tablet twice a day x 3 days, then take one tablet once a day x 3 days, then take 1/2 tab once a day x 3 days 20 tablet 02/23/2025 03/07/2025 Active Problems Problem Classification Problem Date Documented Date Episodic/Chronic Esophageal disorders (1 source) Gastroesophageal reflux disease 10-21-2023 Chronic Hemorrhoids (1 source) Hemorrhoids 10-21-2023 Episodic Other connective tissue disease (6 sources) Plantar fasciitis; Translations: [Plantar fascial fibromatosis] 02-23-2025 Episodic Other connective tissue disease (6 sources) Deformity of lower limb; Translations: [Contracture of muscle, right lower leg] 02-23-2025 Episodic Other connective tissue disease (2 sources) Peroneal tendinitis of right lower limb; Translations: [Peroneal tendinitis, right leg] 02-23-2025 Episodic Other connective tissue disease (4 sources) Metatarsalgia of right foot; Translations: [Metatarsalgia, right foot] 03-23-2025 Episodic Other connective tissue disease (4 sources) Pain in right foot; Translations: [Pain in right foot] 03-23-2025 Episodic Other hereditary and degenerative nervous system conditions (1 source) Essential tremor 10-21-2023 Chronic Other hereditary and degenerative nervous system conditions (2 sources) Idiopathic peripheral autonomic neuropathy; Translations: [Other idiopathic peripheral autonomic neuropathy] 04-13-2025 Chronic Other nutritional; endocrine; and metabolic disorders [...] of colon done] Onset: 07-03-2022 Episodic Other skin disorders (2 sources) Ingrowing nail; Translations: [Ingrowing nail] 02-23-2025 Episodic Other upper respiratory disease (1 source) [...] Results Test Name Value Interpretation Reference Range Facility XR Foot - right 3 [facility] Result: 3 views foot: AP, MO, and lateral of the right foot were taken and show no fractures or dislocations, specifically at the 4th metatarsal. 1st metatarsal is long, mild dorsal spurring at tn joint there is mild degenerative changes noted of the 1st MTPJ with flattening of the 1st metatarsal head and mild spurring noted medially and laterally. Tibial sesamoid is bipartite. Accessory ossicle noted at the medial navicular, and cuboid groove. Lateral view shows mild increase in talar declination angle. [facility] ubigrate [facility] Radiology Study observation (narrative) [facility] XR Foot - right 3 [facility] Result: 3 views foot: AP, MO, and lateral of the right foot were taken and show no fractures or dislocations. 1st metatarsal is elongated. There is mild joint space narrowing of the 1st MTPJ with spurring of the medial lateral 1st metatarsal head. Tibial sesamoid is bipartite. Small accessory ossicle noted at the cuboid groove. Lateral view shows rectus foot structure. No significant calcaneal osteophyte formation present. No lytic lesion noted with calcaneus [facility] Health[facility] Radiology Study observation (narrative) [facility] Outside Colonoscopyon 2023 Outside Colonoscopy [id number] 3E#1.00TIFF [facility] Reminderson 12-19-2023 Reminders -- From: Emma Reeves LPN To: N - Clinical; Sent: 12/19/2023 09:48:54 EDT Show up: 11/16/2033 07:00:00 EDT Subject: colonoscopy recall Due Date/Time: 12/17/2033 07:00:00 EDT Reminder/Recall Patient due for screening colonoscopy 12/17/2033. Normal [facility] Insurance Correspondenceon 0 12-06-2023 Insurance Correspondence [id number] 482#1.00TIFF [facility] Consent for Procedure/Surger yon 11-07-2023 Consent for Procedure/Surgery [id number] A7#1.00TIFF [facility] Facesheeton 11-06-2023 Facesheet [id number] 0#1.00TIFF [facility] Ambulatory Visit Summaryon 0 11-05-2023 Ambulatory Visit Summary CRISTIAN OSMAN :1965 Visit Date:11/05/2023 Ambulatory Visit Instructions Your Diagnosis Screening for malignant neoplasm of colon Your Care Team Attending Physician - CIRO PENALOZA, Sony Cuenca Primary Care Physician - Chris PENALOZA, Kenisha Referring Physician - Kenisha Perez MD This Is Your Medications List Contact [...] for choosing us for your care. Normal [facility] Physician Referralon 024 Physician Referral [id number] 9#1.00TIFF Normal [facility] Physician Referralon 024 Physician Referral [id number] F3#1.00TIFF Normal [facility] XR LSPINE MIN 4 VIEWSon 11-01 [...] JEANINE BARTH Date: 2022-11-28 10:[address] [facility] INSULINon 07-03-2022 Insulin 11.7 uIU/mL Normal 2.6-24.[address] [facility] Comment on above: Performed By: #### I NSULIN #### [facility] [address] [place] [address] Dr. Navarro Biggs TESTOSTERONE, TOTALon 2021 Testosterone [Mass/Vol] 586 ng/dL Normal 264-[address] [facility] Comment on above: Result Comment: Adul t male reference interval is based on a population of healthy nonobese males (BMI <30) between 19 and 39 years old. vicky Anderson.al. JCEM 2017,102;0825-6203. PMID: [id number]. Performed By: #### T ESTTOT #### [facility] [address] [place] [address] Dr. Navarro Biggs CBC AUTO DIFFon 07-02-2022 BASO # 0.1 103/ul Normal 0.0-0.[address] [facility] Comment on above: Performed By: #### P SASC #### [facility] [address] [place] [address] Dr. Navarro Biggs Basophils/100 WBC (Bld) 1.0 % Normal 0.2-2.[address] [facility] Comment on above: Performed By: #### P SASC #### [facility] [address] [place] [address] Dr. Navarro Biggs EO # 0.1 103/ul Normal 0.0-0.[address] [facility] Comment on above: Performed By: #### P SASC #### [facility] [address] [place] [address] Dr. Navarro Biggs Eosinophils/100 WBC (Bld) 1.3 % Normal 0.9-7.[address] [facility] Comment on above: Performed By: #### P SASC #### [facility] [address] [place] [address] Dr. Navaror Biggs Erythrocyte distribution width (RBC) [Ratio] 11.7 % Normal 11.0-15.[address] [facility] Comment on above: Performed By: #### P SASC #### [facility] [address] [place] [address] Dr. Navarro Biggs Hematocrit (Bld) [Volume fraction] 48.3 % Normal 42.0-54.[address] [facility] Comment on above: Performed By: #### P SASC #### [facility] [address] [address] [address] Navarro Biggs Hemoglobin (Bld) [Mass/Vol] 16.7 g/dL Normal 14.0-18.[address] [facility] Comment on above: Performed By: #### P SASC #### [facility] [address] [address] [address] Navarro Biggs IG # 0.01 10e3/ul Normal 0.00-0.[address] [facility] Comment on above: Performed By: #### P SASC #### [facility] [address] [address] [address] Navarro Biggs IG % 0.2 % Normal 0.0-0.[address] [facility] Comment on above: Performed By: #### P SASC #### [facility] [address] [address] [address] Navarro Biggs LYMPH # 1.9 103/ul Normal 1.2-3.[address] [facility] Comment on above: Performed By: #### P SASC #### [facility] [address] [place] [address] Dr. Navarro Biggs Lymphocytes/100 WBC (Bld) 36.6 % Normal 20.5-60.[address] [facility] Comment on above: Performed By: #### P SASC #### [facility] [address] [place] [address] Dr. Navarro Biggs MANUAL DIFF REQ NO Normal [facility] Comment on above: Performed By: #### P SASC #### [facility] [address] [address] [address] Navarro Biggs MCH (RBC) [Entitic mass] 31.4 pg Normal 25.9-34.[address] [facility] Comment on above: Performed By: #### P SASC #### [facility] [address] [address] [address] Navarro Biggs MCHC (RBC) [Mass/Vol] 34.6 g/dL Normal 29.9-35.[address] [facility] Comment on above: Performed By: #### P SASC #### [facility] [address] [address] [address] Navarro Biggs MCV (RBC) [Entitic vol] 90.8 fL Normal 80.0-94.[address] [facility] Comment on above: Performed By: #### P SASC #### [facility] [address] [place] [address] Dr. Navarro Biggs MONO # 0.6 103/ul Normal 0.3-0.[address] [facility] Comment on above: Performed By: #### P SASC #### [facility] [address] [place] [address] Dr. Navarro Biggs Monocytes/100 WBC (Bld) 11.3 % Normal 1.7-12.[address] [facility] Comment on above: Performed By: #### P SASC #### [facility] [address] [place] [address] Dr. Navarro Biggs NEUT # 2.6 103/ul Normal 1.4-6.[address] [facility] Comment on above: Performed By: #### P SASC #### [facility] [address] [place] [address] Dr. Navarro Biggs Neutrophils/100 WBC (Bld) 49.6 % Normal 43.0-75.[address] [facility] Comment on above: Performed By: #### P SASC #### [facility] [address] [place] [address] Dr. Navarro Biggs Platelet mean volume (Bld) [Entitic vol] 11.5 fL Normal 9.5-13.[address] [facility] Comment on above: Performed By: #### P SASC #### [facility] [address] [place] [address] Dr. Navarro Biggs PLT 150 103/ul Normal 150-[address] [facility] Comment on above: Performed By: #### P SASC #### [facility] [address] [place] [address] Dr. Navarro Biggs RBC 5.32 106/ul Normal 4.70-6.[address] [facility] Comment on above: Performed By: #### P SASC #### [facility] [address] [place] [address] Dr. Navarro Biggs WBC 5.2 103/ul Normal 4.0-11.0 [facility] Comment on above: Performed By: #### P SASC #### [facility] [address] [address] [address] Navarro Biggs CULTURE URINEon 07-02-2022 CULTURE URINE Culture Observations: NO GROWTH. Normal [facility] Comment on above: Performed By: #### U RCX #### [facility] [address] [address] [address] Navarro Biggs FREE THYROXINE INDEX T7on FTI 1.69 Normal 1.30-4.50 [facility] Comment on above: Performed By: #### P SASC #### [facility] [address] [place] [address] Dr. Navarro Biggs T3U 36.0 % Normal 33.0-40.0 [facility] Comment on above: Performed By: #### P SASC #### [facility] [address] [place] [address] Dr. Navarro Biggs T4 [Mass/Vol] 4.70 ug/dL Normal 4.50-12.10 [facility] Comment on above: Performed By: #### P SASC #### [facility] [address] [place] [address] Dr. Navarro Biggs GLYCOHEMOGLOBIN A1Con 2021 ADA RECOMMENDATION SEE BELOW Normal [facility] Comment on above: Result Comment: ADA RECOMMENDED LIMIT 4.0 - 6.0 ADA THERAPEUTIC TARGET < 7.0 ACTION SUGGESTED > 7.0 Performed By: #### A 1C #### [facility] [address] [place] [address] Dr. Navarro Biggs Glucose [Mass/Vol] 111 mg/dL Normal [facility] Comment on above: Performed By: #### A 1C #### [facility] [address] [place] [address] Dr. Navarro Biggs HbA1c (Bld) [Mass fraction] 5.5 % Normal 4.5-6.2 [facility] Comment on above: Performed By: #### A 1C #### [facility] [address] [address] [address] Navarro Biggs LIPID PROFILEon 07-02-2022 CHOL-HDL RATIO NORM SEE BELOW Normal [facility] Comment on above: Result Comment: 3.3 - 4.4 LOW RISK 4.4 - 7.1 AVERAGE RISK 7.1 - 11.0 MODERATE RISK >11.0 HIGH RISK Performed By: #### T SH, T7, URIC, CMP, LIPID #### [facility] [address] [address] [address] Navarro Biggs Cholesterol [Mass/Vol] 211 mg/dL Critically high <=200 [facility] Comment on above: Performed By: #### T SH, T7, URIC, CMP, LIPID #### [facility] [address] [address] [address] Navarro Biggs Cholesterol in HDL [Mass/Vol] 56 mg/dL Normal 40-60 [facility] Comment on above: Performed By: #### T SH, T7, URIC, CMP, LIPID #### [facility] [address] [address] [address] Navarro Biggs Cholesterol in LDL [Mass/Vol] 139.0 mg/dL Normal [facility] Comment on above: Performed By: #### T SH, T7, URIC, CMP, LIPID #### [facility] [address] [address] [address] Navarro Biggs Cholesterol.total/Cho lesterol in HDL [Mass ratio] 3.8 {ratio} Normal [facility] Comment on above: Performed By: #### T SH, T7, URIC, CMP, LIPID #### [facility] [address] [address] [address] Navarro Biggs HDL NORMAL > or = 60 mg/dl - LOW CARDIOVASCULAR RISK <40 mg/dl - HIGH CARDIOVASCULAR RISK Normal [facility] Comment on above: Performed By: #### T SH, T7, URIC, CMP, LIPID #### [facility] [address] [address] [address] Navarro Biggs LDL CALC NORMAL SEE BELOW Normal [facility] Comment on above: Result Comment: <100 mg/dl OPTIMAL 100 - 129 mg/dl NEAR OR ABOVE OPTIMAL 130 - 159 mg/dl BORDERLINE HIGH 160 - 189 mg/dl HIGH >190 mg/dl VERY HIGH Performed By: #### T SH, T7, URIC, CMP, LIPID #### [facility] [address] [address] [address] Navarro Biggs Triglyceride [Mass/Vol] 80 mg/dL Normal <=150 [facility] Comment on above: Performed By: #### T SH, T7, URIC, CMP, LIPID #### [facility] [address] [address] [address] Navarro Biggs VLDL CALC 16.0 mg/dL Normal [facility] Comment on above: Performed By: #### T SH, T7, URIC, CMP, LIPID #### [facility] [address] [address] [address] Navarro Biggs PROF 14(COMP METB)on 022 Albumin [Mass/Vol] 3.9 g/dL Normal 3.4-5.0 [facility] Comment on above: Performed By: #### T SH, T7, URIC, CMP, LIPID #### [facility] [address] [address] [address] Navarro Biggs Albumin/Globulin [Mass ratio] 1.3 {ratio} Normal [facility] Comment on above: Performed By: #### T SH, T7, URIC, CMP, LIPID #### [facility] [address] [address] [address] Navarro Biggs ALP [Catalytic activity/Vol] 65 U/L Normal 46-116 [facility] Comment on above: Performed By: #### T SH, T7, URIC, CMP, LIPID #### [facility] [address] [address] [address] Navarro Biggs ALT [Catalytic activity/Vol] 31 U/L Normal 16-63 [facility] Comment on above: Performed By: #### T SH, T7, URIC, CMP, LIPID #### [facility] [address] [address] [address] Navarro Biggs Anion gap [Moles/Vol] 7.8 mmol/L Normal [facility] Comment on above: Performed By: #### T SH, T7, URIC, CMP, LIPID #### [facility] [address] [address] [address] Navarro Biggs AST [Catalytic activity/Vol] 11 U/L Critically low 15-37 [facility] Comment on above: Performed By: #### T SH, T7, URIC, CMP, LIPID #### [facility] [address] [address] [address] Navarro Biggs Bilirubin [Mass/Vol] 1.3 mg/dL Critically high 0.2-1.0 [facility] Comment on above: Performed By: #### T SH, T7, URIC, CMP, LIPID #### [facility] [address] [place] [address] Dr. Navarro Biggs Calcium [Mass/Vol] 8.9 mg/dL Normal 8.5-10.1 [facility] Comment on above: Performed By: #### T SH, T7, URIC, CMP, LIPID #### [facility] [address] [place] [address] Dr. Navarro Biggs Chloride [Moles/Vol] 102 mmol/L Normal 98-[address] [facility] Comment on above: Performed By: #### T SH, T7, URIC, CMP, LIPID #### [facility] [address] [place] [address] Dr. Navarro Biggs CO2 [Moles/Vol] 30.7 mmol/L Normal 21.0-32.0 [facility] Comment on above: Performed By: #### T SH, T7, URIC, CMP, LIPID #### [facility] [address] [place] [address] Dr. Navarro Biggs Creatinine [Mass/Vol] 0.99 mg/dL Normal 0.70-1.[address] [facility] Comment on above: Performed By: #### T SH, T7, URIC, CMP, LIPID #### [facility] [address] [place] [address] Dr. Navarro Biggs EGFR-AF LUXEMBOURGER >60 Normal >=60 [facility] Comment on above: Performed By: #### T SH, T7, URIC, CMP, LIPID #### [facility] [address] [place] [address] Dr. Navarro Biggs EGFR-NON AF LUXEMBOURGER >60 Normal >=[address] [facility] Comment on above: Performed By: #### T SH, T7, URIC, CMP, LIPID #### [facility] [address] [address] [address] Navarro Biggs Globulin (S) [Mass/Vol] 3.1 g/dL Normal [facility] Comment on above: Performed By: #### T SH, T7, URIC, CMP, LIPID #### [facility] [address] [place] [address] Dr. Navarro Biggs Glucose [Mass/Vol] 98 mg/dL Normal 74-106 [facility] Comment on above: Performed By: #### T SH, T7, URIC, CMP, LIPID #### [facility] [address] [place] [address] Dr. Navarro Biggs Potassium [Moles/Vol] 4.5 mmol/L Normal 3.5-5.1 [facility] Comment on above: Performed By: #### T SH, T7, URIC, CMP, LIPID #### [facility] [address] [place] [address] Dr. Navarro Biggs Protein [Mass/Vol] 7.0 g/dL Normal 6.4-8.2 [facility] Comment on above: Performed By: #### T SH, T7, URIC, CMP, LIPID #### [facility] [address] [place] [address] Dr. Navarro Biggs Sodium [Moles/Vol] 136 mmol/L Normal 136-145 [facility] Comment on above: Performed By: #### T SH, T7, URIC, CMP, LIPID #### [facility] [address] [place] [address] Dr. Navarro Biggs Urea nitrogen [Mass/Vol] 17.0 mg/dL Normal 7.0-18.0 [facility] Comment on above: Performed By: #### T SH, T7, URIC, CMP, LIPID #### [facility] [address] [place] [address] Dr. Navarro Biggs Urea nitrogen/Creatinine [Mass ratio] 17.2 mg/mg Normal [facility] Comment on above: Performed By: #### T SH, T7, URIC, CMP, LIPID #### [facility] [address] [place] [address] Dr. Navarro Biggs TSHon 07-02-2022 TSH 3.276 uIU/mL Normal 0.358-3.740 [facility] Comment on above: Performed By: #### P SASC #### [facility] [address] [place] [address] Dr. Navarro Biggs UA RANDOM W/MICROSCOPICon BACTERIA NONE SEEN Normal NONE SEEN [facility] Comment on above: Performed By: #### U AMIC #### [facility] [address] [place] [address] Dr. Navarro Biggs Bilirubin Ql (U) Negative Normal NEGATIVE [facility] Comment on above: Performed By: #### U AMIC #### [facility] [address] [place] [address] Dr. Navarro Biggs CAST NONE SEEN Normal NONE SEEN [facility] Comment on above: Performed By: #### U AMIC #### [facility] [address] [place] [address] Dr. Navarro Biggs Clarity (U) CLEAR Normal CLEAR [facility] Comment on above: Performed By: #### U AMIC #### [facility] [address] [place] [address] Dr. Navarro Biggs Color (U) LT. YELLOW Normal YELLOW [facility] Comment on above: Performed By: #### U AMIC #### [facility] [address] [place] [address] Dr. Navarro Biggs Crystals LM Nom (Urine sed) NONE SEEN Normal NONE SEEN [facility] Comment on above: Performed By: #### U AMIC #### [facility] [address] [place] [address] Dr. Navarro Biggs Epithelial cells LM Ql (Urine sed) NONE SEEN Normal NONE SEEN /RARE [facility] Comment on above: Performed By: #### U AMIC #### [facility] [address] [address] [address] Navarro Biggs Glucose Ql (U) Negative Normal NEGATIVE [facility] Comment on above: Performed By: #### U AMIC #### [facility] [address] [address] [address] Navarro Biggs Hemoglobin Ql (U) Negative Normal NEGATIVE [facility] Comment on above: Performed By: #### U AMIC #### [facility] [address] [address] [address] Navarro Biggs Ketones Ql (U) Negative Normal NEGATIVE [facility] Comment on above: Performed By: #### U AMIC #### [facility] [address] [address] [address] Navarro Biggs LEUKOCYTES Negative Normal NEGATIVE [facility] Comment on above: Performed By: #### U AMIC #### [facility] [address] [address] [address] Navarro Biggs MUCOUS NONE SEEN Normal NONE SEEN [facility] Comment on above: Performed By: #### U AMIC #### [facility] [address] [address] [address] Navarro Biggs Nitrite Ql (U) Negative Normal NEGATIVE [facility] [facility] Comment on above: Performed By: #### U AMIC #### [facility] [address] [address] [address] Navarro Biggs pH (U) 7.5 [pH] Normal 5-[address] [facility] Comment on above: Performed By: #### U AMIC #### [facility] [address] [place] [address] Dr. Navarro Biggs RBC 0-2 Normal 0-2 [facility] Comment on above: Performed By: #### U AMIC #### [facility] [address] [address] [address] Navarro Biggs SPEC GRAVITY 1.020 Normal 1.005-<=1.025 [facility] Comment on above: Performed By: #### U AMIC #### [facility] [address] [address] [address] Navarro Biggs UA PROTEIN Negative Normal NEGATIVE/ TRACE [facility] Comment on above: Performed By: #### U AMIC #### [facility] [address] [address] [address] Navarro Biggs Urobilinogen Qn (U) 0.2 {Jayden'U}/dL Normal 0.2 - 1. 0 [facility] Comment on above: Performed By: #### U AMIC #### [facility] [address] [address] [address] Navarro Biggs WBC 0-2 Abnormal NONE SEEN [facility] Comment on above: Performed By: #### U AMIC #### [facility] [address] [place] [address] Dr. Navarro Biggs URIC ACID SERUMon 07-02-2022 Urate [Mass/Vol] 4.8 mg/dL Normal 3.5-7.2 [facility] Comment on above: Performed By: #### T SH, T7, URIC, CMP, LIPID #### [facility] [address] [place] [address] Dr. Navarro Biggs Vital Signs Date Time Vital Sign Value Performing Clinician Facility 04-13-2025 15:54-0400 Body height 180.3 cm Félix Prasad DPM Work Phone: [facility] 04-13-2025 15:54-0400 Body mass index (BMI) [Ratio] 29.29 kg/m2 Félix Prasad DPM Work Phone: [facility] 04-13-2025 15:54-0400 Body weight 95.25 kg Félix Prasad DPM Work Phone: [facility] 03-23-2025 16:14-0400 Body height 180.3 cm Félix Prasad DPM Work Phone: [facility] 03-23-2025 16:14-0400 Body mass index (BMI) [Ratio] 29.29 kg/m2 Félix Prasad DPM Work Phone: [facility] 03-23-2025 16:14-0400 Body weight 95.25 kg Félix Prasad DPM Work Phone: [facility] 02-23-2025 15:43-0400 Body height 180.3 cm Félix Prasad DPM Work Phone: [facility] 02-23-2025 15:43-0400 Body mass index (BMI) [Ratio] 28.59 kg/m2 Félix Prasad DPM Work Phone: [facility] 02-23-2025 15:43-0400 Body weight 92.99 kg Félix Prasad DPM Work Phone: [facility] 11-05-2023 15:27-0500 Blood Pressure Location [facility] 11-05-2023 15:27-0500 Diastolic blood pressure 78 mm[Hg] [facility] 11-05-2023 15:27-0500 Heart rate 70 /min [facility] 11-05-2023 15:27-0500 Respiratory rate 16 /min [facility] 11-05-2023 15:27-0500 Systolic blood pressure 118 mm[Hg] [facility] Encounters Encounter Date Encounter Type Care Provider Facility Start: 04-13-2025 End: 04-13-2025 Office outpatient visit 15 minutes Félix Prasad DPM Work Phone: [facility] Comment on above: Metatarsalgia of rig ht foot (Primary Dx); Right foot pain; Plantar fasciitis; Peripheral autonomic neuropathy of unknown cause Start: 04-13-2025 End: 04-13-2025 ambulatory FÉLIX PRASAD Not Available Start: 04-13-2025 End: 04-13-2025 Bamboo flowsheet Félix Prasad DPM Work Phone: [facility] Start: 04-13-2025 End: 04-13-2025 Bamboo flowsheet Félix Lewise DPM Work Phone: [facility] Start: 03-23-2025 End: 03-23-2025 Office outpatient visit 25 minutes Félix Prasad DPM Work Phone: [facility] Comment on above: Plantar fasciitis (P rimary Dx); Gastrocnemius equinus of right lower extremity; Metatarsalgia of right foot; Right foot pain Start: 03-23-2025 End: 03-23-2025 ambulatory FÉLIX PRASAD Not Available Start: 03-23-2025 End: 03-23-2025 Bamboo flowsheet Félix Godfrey Prasad DPM Work Phone: [facility] Start: 03-23-2025 End: 03-23-2025 Bamboo flowsheet Félix Lewise DPM Work Phone: [facility] Start: 02-23-2025 End: 02-23-2025 ambulatory FÉLIX PRASAD Not Available Start: 02-23-2025 End: 02-23-2025 ambulatory FÉLIX LEWISE Not Available Start: 02-23-2025 End: 02-23-2025 Office outpatient new 45 minutes Félix Prasad DPM Work Phone: [facility] Comment on above: Plantar fasciitis (P rimary Dx); Gastrocnemius equinus of right lower extremity; Peroneal tendinitis of right lower extremity; Gastrocnemius equinus of left lower extremity; Ingrown nail Start: 02-23-2025 End: 02-23-2025 Bamboo flowsheet Félix Bekah Prasad DPM Work Phone: [facility] Start: 02-23-2025 End: 02-23-2025 Bamboo flowsheet Félix W Prasad DPM Work Phone: [facility] Start: 12-18-2023 End: 12-19-2023 ambulatory Sony TANNER Facility:CD:[id number] Start: 11-05-2023 End: 11-06-2023 ambulatory Sony SHEAJennifer Facility: [facility] Start: 11-05-2023 End: 11-05-2023 Patient encounter procedure Sony TAN[facility] Start: 09-27-2023 ambulatory Sony TANNER Facility:[facility] Start: 11-28-2022 End: 11-29-[address] KENISHA PEREZ . Facility: Start: 07-03-2022 Encounter for genera l adult medical examination without abnormal findings DR KENISHA PEREZ . [facility] Start: 07-02-2022 End: 07-03-[address] KENISHA PEREZ . Facility: Start: 07-02-2022 End: 07-03-2022 Encounter for general adult medical examination without abnormal findings DR KENISHA PEREZ . Facility: Procedures Date Procedure Procedure Detail Performing Clinician Start: 03-23-2025 Radex foot complete minimum 3 views Félix Prasad DPM Work Phone: Start: 02-23-2025 Radex foot complete minimum 3 views Félix Prasad DPM Work Phone: Start: 07-02-[address] SAPNA PEREZ . Comment on above: Performed By: #### [facility] #### [facility] [address] [place] [address] Dr. Navarro Biggs Vasectomy Sony TANNER Plan of Treatment Date Care Activity Detail Author Start: 05-03-2025 Influenza vaccination [facility] Start: 04-13-2025 End: 04-13-2025 Patient encounter procedure [facility] Comment on above: Arrived Start: 03-23-2025 End: 03-23-2025 Patient encounter procedure [facility] Comment on above: Arrived Start: 1965 Screening for malignant neoplasm of colon [facility] Immunizations Immunization Date Immunization Notes Care Provider Fa cility NEGATED: Highlighted row has not occurred!11-05-2023 influenza virus vaccine, unspecified formulation Sony NILL [facility] [place] Payers Date Payer Category Payer Private Health Insurance [id number] 1965 Unknown [id number] 2.16.84 [id number] 1965 Unknown [id number] 2.16.84 [id number] 1965 Unknown [id number] 2.16.8 [id number] 1965 Unknown [id number] 2.16.8 [id number] 1965 Unknown [id number] 2.16.8 [id number] 1965 Unknown [id number] 2.16.8 [id number] 1965 Unknown [id number] 2.16.8 [id number] 1965 Unknown [id number] 2.16.8 [id number] 1965 Unknown [id number] 2.16.8 [id number] 1959 Unknown [id number] 1959 Unknown [id number] Social History Date Type Detail Facility Start: 11-05-2023 Tobacco smoking status Ex-smoker (fi nding) [facility] Tobacco smoking status Never [facility] Start: 02-23-2025 End: 03-23-2025 Sex Assigned At Male Emilio Renee [facility] consumption unknown [facility] Start: 1965 Sex assigned at Not on file [facility] Start: 02-23-2025 Tobacco smoking stat [facility] Never smoked tobacco [facility] Start: 02-23-2025 End: 04-13-2025 Alcoholic beverage intake Current drinker of alcohol (finding) [facility] Start: 02-23-2025 End: 03-23-2025 Alcoholic beverage intake [facility] Start: 02-23-2025 Alcohol Comment weekends [facility] Functional Status Date Assessment Result Facility 11-05-2023 Functional Status N/A [facility] History of Present illness Narrative 04-13-2025 Félix Prasad, BENJIM - 04/13/2025 4:00 PM EDT Note Date & Type Note Facility 04-13-2025 History of Presen t illness Narrative Images from the original note were not included. Subjective Patient ID: Tank Osman is a 59 y.o. male who presents for FUV (Tank Osman is a 59 y.o. male who presents for FUV BL foot pain, still very painful for him. Patient had some relief with Prednisone but pain has returned, states, no change, the entire foot hurts. SS: 11). HPI Patient presents for follow up of right lateral foot pain. He states he has been wearing his supportive shoe gear and power step inserts with offloading pad. He completed the 2nd course of steroid. He did not feel he has made any improvement overall. Along with a right lateral foot pain he is also experiencing tingling and generalized pain throughout day as as achiness in his feet when he 1st stands in the morning Review of Systems Medications No current outpatient medications on file. Allergies Patient has no known allergies. Past Surgical History History reviewed. No pertinent surgical history. Family History No family history on file. Objective Physical Exam Constitutional: General: He is not in acute distress. HENT: Head: Atraumatic. Cardiovascular: Comments: Pedal pulses: DP pulses are 2/4, PT pulses are 2/4 Skin temp is warm to warm. Varicosities: none Hair growth: present Pulmonary: Effort: Pulmonary effort is normal. No respiratory distress. Musculoskeletal: Comments: ROM: AJ dorsiflexion is limited with knee extended and improves with knee flexed. STJ ROM WNL. MUSCLE STRENGTH: 5/5 for all quadrants without tenderness. PAIN: Pain noted along 4th metatarsal neck and head and base as well as interface between 3rd and 4th met bases and 4th and 5th met basese. There is no pain with ROM or vertical stress test at 4th MTPJ. No further pain at the insertion of the plantar fascia into the calcaneus b/l. Skin: General: Skin is warm. Capillary Refill: Capillary refill takes less than 2 seconds. Findings: No bruising or erythema. Comments: SKIN FINDINGS: Webspaces are clean and dry. Skin turgor and texture normal HYPERKERATOSIS: none NAILS: Left medial hallux nail is significantly incurvated. It is not currently ingrown. There is no localized inflammation or erythema. No drainage Neurological: Mental Status: He is alert. Comments: Gross sensation intact. Pain with tuning fork application to the 4th metatarsal Vibration: Absent of IPJ, diminished at MPJ medial malleolus and patella bilaterally [place] monofilament: Intact at 10/10 sites Psychiatric: Mood and Affect: Mood normal. Behavior: Behavior normal. Assessment/Plan ICD-10-CM 1. Metatarsalgia of right foot M77.41 2. Right foot pain M79.671 3. Plantar fasciitis M72.2 4. Peripheral autonomic neuropathy of unknown cause G90.09 Patient was examined and evaluated. Plantar fasciitis symptoms have resolved. Right lateral foot pain persists along the 4th metatarsal. I recommended a period of immobilization with or without also ordering an MRI to assess the foot further. Patient declines both stating he plans to work at the [employer] next week, this is the busiest time of the year for him and he does not want to be immobilized or get further imaging at this time. Erx Meloxicam 15mg daily x 21 days. Discussed that the tingling/numbness sensation may be idopathic neuropathy. Reviewed that there is extensive lab work along with neuro referral and NCV testing that could be done to try to determine a cause, but that 30-40% of pts with neuropathy, the cause remains unknown. I recommended patient start with his PCP, as he thinks he may be due for lab work anyway, to discuss the symptoms he is having to see if they would add thyroid function and HbA1c to his annual lab work to rule out causes of neuropathy. Discussed treatment of neuropathy as first finding and treating underlying diease, then using options of Lyrica vs Neurontin vs Metanx to help with symptoms. Pt plans to go to PCP and will follow up here as needed. I explained the achiness of the feet in the morning could be a joint pain or neuropathy symptoms. Meloxicam may help this. I also recommend he try getting up 1st thing in the morning and putting on his shoes with inserts to see if this improves the pain and stiffness. This note was created with the assistance of a speech recognition program. While intending to generate a timely document that accurately reflects the content of the visit, no guarantee can be provided that every grammatical or spelling mistake has been or will be identified or corrected. Thank you for your understanding. Félix Prasad DPM documented in this encounter [facility] History of Present illness Narrative 03-23-2025 Félix Prasad DPM - 03/23/2025 4:15 PM EDT Note Date & Type Note Facility 03-23-2025 History of Presen t illness Narrative Images from the original note were not included. Subjective Patient ID: Tank Osman is a 59 y.o. male who presents for Follow-up (Pt presents today for BL foot pain, still very painful for him. Most tender dorsal 4th met area. He completed the prednisone without complications, he admits to not taking it the way the directions stated. /SS: 11). HPI Patient presents for follow up of bilateral heel pain and right lateral foot pain. He states he has been wearing his supportive shoe gear and power step inserts. He has not been icing, he has not been stretching. He did start the oral prednisone taper but did not complete it, he knows he had not take it the way he was supposed to. He states the heels are no longer painful. He states he is having pain at the right lateral forefoot. He feels the discomfort as burning and it is present all day long. Review of Systems Medications Current Outpatient Medications: predniSONE (Deltasone) 10 MG tablet, Take 1 tablet (10 mg) by mouth See administration instructions for 12 days Take one tablet three times a day x 3 days, then take one tablet twice a day x 3 days, then take one tablet once a day x 3 days, then take 1/2 tab once a day x 3 days, Disp: 20 tablet, Rfl: 0 Allergies Patient has no known allergies. Past Surgical History History reviewed. No pertinent surgical history. Family History No family history on file. Objective Physical Exam Constitutional: General: He is not in acute distress. HENT: Head: Atraumatic. Cardiovascular: Comments: Pedal pulses: DP pulses are 2/4, PT pulses are 2/4 Skin temp is warm to warm. Varicosities: none Hair growth: present Pulmonary: Effort: Pulmonary effort is normal. No respiratory distress. Musculoskeletal: Comments: ROM: AJ dorsiflexion is limited with knee extended and improves with knee flexed. STJ ROM WNL. MUSCLE STRENGTH: 5/5 for all quadrants without tenderness. PAIN: New pain today noted along 4th metatarsal neck and head. There is no pain with ROM or vertical stress test at 4th MTPJ. No further pain at the insertion of the plantar fascia into the calcaneus b/l. No discomfort with palpation of the weight bearing surface of the calcaneus. No pain with medial to lateral compression of the heel. No pain in the Achilles or Posterior tibial tendon. No further pain at right styloid process/peroneal brevis insertion. There is no further tenderness at bases of 4th and 5th metatarsals and interface of 4th and 5th metatarsal bases. Skin: General: Skin is warm. Capillary Refill: Capillary refill takes less than 2 seconds. Findings: No bruising or erythema. Comments: SKIN FINDINGS: Webspaces are clean and dry. Skin turgor and texture normal HYPERKERATOSIS: none NAILS: Left medial hallux nail is significantly incurvated. It is not currently ingrown. There is no localized inflammation or erythema. No drainage Neurological: Mental Status: He is alert. Comments: No loss of protective sensation, gross sensation intact. Pain with tuning fork application to the 4th metatarsal Psychiatric: Mood and Affect: Mood normal. Behavior: Behavior normal. XR foot 3+ views right Imaging Result: 3 views foot: AP, MO, and lateral of the right foot were taken and show no fractures or dislocations, specifically at the 4th metatarsal. 1st metatarsal is long, mild dorsal spurring at tn joint there is mild degenerative changes noted of the 1st MTPJ with flattening of the 1st metatarsal head and mild spurring noted medially and laterally. Tibial sesamoid is bipartite. Accessory ossicle noted at the medial navicular, and cuboid groove. Lateral view shows mild increase in talar declination angle. Assessment/Plan ICD-10-CM 1. Plantar fasciitis M72.2 2. Gastrocnemius equinus of right lower extremity M62.461 3. Metatarsalgia of right foot M77.41 XR foot 3+ views right predniSONE (Deltasone) 10 MG tablet 4. Right foot pain M79.671 XR foot 3+ views right predniSONE (Deltasone) 10 MG tablet Patient was examined and evaluated. The bilateral heel pain has resolved as has the right lateral mid foot pain. He has a new foot pain at the right lateral forefoot. He states this has been present since his 1st visit, and is now the main issue. Pain is localized to the 4th metatarsal. Discussed overuse syndrome versus stress fracture. Repeat radiographs were done. No acute osseous abnormalities were noted. Discussed that this could be treated with immobilization in CAM walker or supportive shoe gear and offload padding. He prefers to try continuing supportive shoe gear with power step inserts, I applied an offloading pad to offload the 4th and 5th metatarsal heads. Also advise icing therapy. Patient requests additional ERx Prednisone 10mg taper. Potential S.E. cautioned. If no improvement, consider immobilization or further imaging. RTO 3-4 weeks. This note was created with the assistance of a speech recognition program. While intending to generate a timely document that accurately reflects the content of the visit, no guarantee can be provided that every grammatical or spelling mistake has been or will be identified or corrected. Thank you for your understanding. Félix Prasad DPM documented in this encounter [facility] History of Present illness Narrative 02-23-2025 Félix Prasad DPM - 02/23/2025 3:30 PM EDT Note Date & Type Note Facility 02-23-2025 History of Presen t illness Narrative Images from the original note were not included. Subjective Patient ID: Tank Osman is a 59 y.o. male who presents for Foot Pain (Tank Osman 59yo New Patient presents with BL foot pain. Right is worse. Patient relates pain started at least 1 year ago. NKI. Pain is worse in the AM,typically feels like needles in heel and bottom of foot. 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 Patient purchased Powersteps last week. Patient works at [employer] and [employer], pain is starting to slow him down. SS11 ). HPI Patient presents complaining of bilateral foot pain that has been present for 1 year. He states the right is much worse than the left. The pain is worse 1st thing in the morning and when standing after periods of rest. He works at [employer] 8 hours a day 5 days a week in steel-toed shoes. 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 He did purchase power steps approximately 1 week ago and does feel these have helped. He also has a recurrent ingrown nail at the left medial hallux nail that he would like me to assess. Review of Systems Medications Current Outpatient Medications: predniSONE (Deltasone) 10 MG tablet, Take 1 tablet (10 mg) by mouth See administration instructions for 12 days Take one tablet three times a day x 3 days, then take one tablet twice a day x 3 days, then take one tablet once a day x 3 days, then take 1/2 tab once a day x 3 days, Disp: 20 tablet, Rfl: 0 Allergies Patient has no known allergies. Past Surgical History History reviewed. No pertinent surgical history. Family History No family history on file. Objective Physical Exam Constitutional: General: He is not in acute distress. HENT: Head: Atraumatic. Cardiovascular: Comments: Pedal pulses: DP pulses are 2/4, PT pulses are 2/4 Skin temp is warm to warm. Varicosities: none Hair growth: present Pulmonary: Effort: Pulmonary effort is normal. No respiratory distress. Musculoskeletal: Comments: ROM: AJ dorsiflexion is limited with knee extended and improves with knee flexed. STJ ROM WNL. MUSCLE STRENGTH: 5/5 for all quadrants without tenderness. PAIN: Pain at the insertion of the plantar fascia into the calcaneus right worse than left. Mild discomfort with palpation of the weight bearing surface of the calcaneus. No pain with medial to lateral compression of the heel. No pain in the Achilles or Posterior tibial tendon. There is pain at Right styloid process at Peroneal brevis insertion. There is also tenderness at bases of 4th and 5th metatarsals and interface of 4th and 5th metatarsal bases. Skin: General: Skin is warm. Capillary Refill: Capillary refill takes less than 2 seconds. Findings: No bruising or erythema. Comments: SKIN FINDINGS: Webspaces are clean and dry. Skin turgor and texture normal HYPERKERATOSIS: none NAILS: Left medial hallux nail is significantly incurvated. It is not currently ingrown. There is no localized inflammation or erythema. No drainage Neurological: Mental Status: He is alert. Comments: No loss of protective sensation, gross sensation intact. Psychiatric: Mood and Affect: Mood normal. Behavior: Behavior normal. XR foot 3+ views right Imaging Result: 3 views foot: AP, MO, and lateral of the right foot were taken and show no fractures or dislocations. 1st metatarsal is elongated. There is mild joint space narrowing of the 1st MTPJ with spurring of the medial lateral 1st metatarsal head. Tibial sesamoid is bipartite. Small accessory ossicle noted at the cuboid groove. Lateral view shows rectus foot structure. No significant calcaneal osteophyte formation present. No lytic lesion noted with calcaneus Assessment/Plan ICD-10-CM 1. Plantar fasciitis M72.2 XR foot 3+ views right predniSONE (Deltasone) 10 MG tablet 2. Gastrocnemius equinus of right lower extremity M62.461 3. Peroneal tendinitis of right lower extremity M76.71 4. Gastrocnemius equinus of left lower extremity M62.462 5. Ingrown nail L60.0 Discussed of the left medial hallux nail is significantly incurvated. It is not currently ingrown. Reviewed that his nail will continue to grow incurvated, if continues to be bothersome for him he may consider doing a partial permanent nail avulsion with phenol the left medial hallux nail. Patient states he will consider this option, we discussed the procedure and expected recovery course. Patient was examined and evaluated. Radiographic and clinical findings were discussed with the patient. Discuss with patient the stress/inflammation/ pain cycle. Stress the importance of good supportive tie shoes. Recommended he be fit and measured for shoes at [employer]. Advise no flip flops, slippers nor bare feet. Explain the anatomy of the plantar fascia and equinus. Reviewed that the lateral foot pain is likely from gait compensation having heel pain for over 1 year. We will treat plantar fasciitis 1st, if needed may add ASO ankle brace at his appointment. Demonstrate stretching exercises and give handout for the same. Also advise icing therapy. Patient requests 2 additional pairs of Powerstep orthotics. ERx Prednisone 10mg taper. Potential S.E. cautioned. Activity discussed and to minimize irritation to the heel area. RTO 3-4 weeks. This note was created with the assistance of a speech recognition program. While intending to generate a timely document that accurately reflects the content of the visit, no guarantee can be provided that every grammatical or spelling mistake has been or will be identified or corrected. Thank you for your understanding. Félix Prasad DPM documented in this encounter [facility] Clinical Note 11-05-2023 Note Date & Type Note Facility 11-05-2023 Note Chief Complaint consultation for colonoscopy [facility] Staff 57 year old male presents on consultation from Dr. Perez for screening colonoscopy. Denies abdominal or rectal [...] vaccine, inactivated - Not Given Patient Refuses [facility] Comment on above: Result Comment: Elec tronically Signed By: CIRO PENALOZA, Sony Pierce\Date and Time Signed: 11/05/23 15:46 EST Evaluation + Plan note Note Date & Type Note Facility Evaluation + Plan note No data available for this section General Surgery [facility] Evaluation note Note Date & Type Note Facility Evaluation note Diagnosis Plantar fasciitis- Primary Plantar fascial fibromatosis Gastrocnemius equinus of right lower extremity Peroneal tendinitis of right lower extremity Gastrocnemius equinus of left lower extremity Ingrown nail Ingrowing nail documented in this encounter [facility] Healthcare Evaluation note Note Date & Type Note Facility Evaluation note Diagnosis Plantar fasciitis- Primary Plantar fascial fibromatosis Gastrocnemius equinus of right lower extremity Metatarsalgia of right foot Right foot pain Pain in soft tissues of limb documented in this encounter [facility] Healthcare Evaluation note Note Date & Type Note Facility Evaluation note Diagnosis Metatarsalgia of right foot- Primary Right foot pain Pain in soft tissues of limb Plantar fasciitis Plantar fascial fibromatosis Peripheral autonomic neuropathy of unknown cause Idiopathic peripheral autonomic neuropathy, unspecified documented in this encounter [facility] Hospital Discharge instructions Note Date & Type Note Facility Hospital Discharge instructions No data available for this section General Surgery [facility] Progress note Note Date & Type Note Facility Progress note No data available for this section General Surgery [facility] Summary Purpose Family History No Family History Records Found No data available for this section No Family History Records FoundNo Family History Records Found Advance Directives No Advanced Directives Records FoundNo Advanced Directives Records FoundNo Advanced Directives Records Found Additional Source Comments (unrecognized sect ion and content) No Status Records FoundNo Status Records FoundNo Status Records Found INFORMATION SOURCE (unrecogn ized section and content) DATE CREATED AUTHOR 12/02/2022 [facility] DATE CREATED AUTHOR AUTHOR'S ORGANIZ ATION 12/31/[address] [facility] DATE CREATED AUTHOR AUTHOR'S ORGANIZ ATION 04/15/2025 [facility] EPIC Patient Care team informatio n (unrecognized section and content) Clinical Services Manager Relationship Specialty Start Date End Date Kenisha Perez MD [address] [place] [address] PCP - General Family Medicine 02/23/25 Clinical Services Manager Relationship Specialty Start Date End Date Kenisha Perez MD [address] [place] [address] PCP - General Family Medicine 02/23/25 Clinical Services Manager Relationship Specialty Start Date End Date Kenisha Perez MD [address] [place] [address] PCP - General Family Medicine 02/23/25 Clinical Services Manager Relationship Specialty Start Date End Date Kenisha Perez MD [address] [place] [address] PCP - General Family Medicine 02/23/25 Reason for Visit (unrecogniz ed section and content) Reason Comments Foot Pain Tank Osman 59yo Ne w Patient presents with BL foot pain. Right is worse. Patient relates pain started at least 1 year ago. NKI. Pain is worse in the AM,typically feels like needles in heel and bottom of foot. 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 Patient purchased [employer] last week. Patient works at [employer] and [employer], pain is starting to slow him down. SS11 Reason Comments Follow-up Pt presents today fo r BL foot pain, still very painful for him. Most tender dorsal 4th met area. He completed the prednisone without complications, he admits to not taking it the way the directions stated. SS: 11 Reason Comments FUV Tank Osman is a 59 y.o. male who presents for FUV BL foot pain, still very painful for him. Patient had some relief with Prednisone but pain has returned, states, no change, the entire foot hurts. SS: 11 FOR RECORDS PERTAINING TO PATIENTS WHO ARE [...] BE BASED ON THE PRIMARY CLINICAL RECORDS. [facility] [employer] [facility] provides no warranty or guarantee of the accuracy or completeness of information in this document.
[2025-06-05 07:08] LABS: Hematocrit 48.8 % (42.0-54.0); Hemoglobin 17.0 g/dL (14.0-18.0); Immature Granulocytes Abs Auto 0.01 10^3/uL (0.00-0.03); Immature Granulocytes Pct Auto 0.2 % (0.0-0.5); Lymphocytes Absolute Auto 2.3 10^3/uL (1.2-3.8); Mean Corpuscular HGB Conc 34.8 g/dL (29.9-35.2); Mean Corpuscular Hemoglobin 31.4 pg (25.9-34.0); Mean Corpuscular Volume 90.2 fL (80.0-94.0); Platelet Count 159 10^3/uL (150-450); Red Blood Count 5.41 10^6/uL (4.70-6.10); White Blood Count 5.4 10^3/uL (4.0-11.0)
[2025-06-05 07:46] LABS: Alanine Aminotransferase 30 U/L (16-63); Albumin Globulin Ratio 1.1; Albumin Level 3.8 g/dL (3.4-5.0); Alkaline Phosphatase 71 U/L (46-116); Anion Gap 13.6; Aspartate Amino Transferase 15 U/L (15-37); Blood Urea Nitrogen 15.0 mg/dL (7.0-18.0); Calcium 8.6 mg/dL (8.5-10.1); Carbon Dioxide 25.7 mmol/L (21.0-32.0); Chloride 106 mmol/L (98-107); Cholesterol 199 mg/dL (<=200); Estimated GFR (African America >60 (>=60 mL/min/1.73m^2); Estimated GFR (Non-African Ame >60 (>=60 mL/min/1.73m^2); Free T3 2.88 pg/mL (2.18-3.98); Globulin 3.4 g/dL; Glucose 100 mg/dL (74-106); HDL Cholesterol 50 mg/dL (40-60); Potassium 4.3 mmol/L (3.5-5.1); Sodium 141 mmol/L (136-145); Thyroid Stimulating Hormone 4.243 uIU/mL (0.358-3.740); Total Protein 7.2 g/dL (6.4-8.2); Triglycerides 76 mg/dL (<=150); VLDL CHOLESTEROL 15.2 mg/dL
== END 2025-06-05 06:29 | disposition home or self-care (01) ==
PROVIDERS: PCP Family Medicine; Visit Provider Family Medicine
DX: Z00.00 Encounter for general adult medical examination without abnormal findings (principal)
CPT/HCPCS: 36415; 80053; 80061; 83036; 83525; 84436; 84443; 84481; 85025; G0103